=== PATIENT | male | born 1935 | race Caucasian/White ===

== ENCOUNTER 2024-11-07 18:15 | Inpatient (IN) | payer MEDICARE, MEDICAID, SELFPAY ==
[2024-11-07] VITALS (32 sets, daily range): BP systolic 110–148; BP diastolic 55–110; PULSE 84–208; RESP 16–49; TEMP 37.6–39.3; O2SAT 91–98; BMI 26.2
[2024-11-07 19:34] LABS: Add Manual Diff / Slide Review NO; Hematocrit 37.4 % (41-53); Hemoglobin 12.5 g/dL (13.5-17.5); Lymphocytes Absolute Auto 700 /uL (1100-4500); Mean Corpuscular HGB Conc 33.5 % (30-36); Mean Corpuscular Hemoglobin 27.4 PG (26-34); Mean Corpuscular Volume 81.8 fL (80-100)
[2024-11-07 19:39] LABS: Alanine Aminotransferase 15 IU/L (<50); Albumin 4.1 g/dL (3.5-5.0); Albumin Globulin Ratio 1.1 (1.0-2.8); Alkaline Phosphatase 94 U/L (38-126); Blood Urea Nitrogen 26 mg/dL (9-20); Calcium 10.0 mg/dL (8.4-10.2); Carbon Dioxide 17 mmol/L (22-32); Chloride 99 mmol/L (98-107); Estimated Glomerular Filt Rate 59 mL/min (>60); Globulin 3.6 g/dL (1.7-4.1); Glucose 120 mg/dL (70-99); Lipase 29 U/L (23-300); Potassium 4.2 mmol/L (3.4-5.1); Sodium 125 mmol/L (137-145); Total Protein 7.7 g/dL (6.3-8.2)
[2024-11-07 19:42] LABS: HEMOLYSIS 61 (0-50)
[2024-11-07 19:48] LABS: Anisocytosis 2+
[2024-11-07 20:15] LABS: Influenza A - CEPHEID Flu A NEGATIVE (NEGATIVE); Influenza B - CEPHEID Flu B NEGATIVE (NEGATIVE)
[2024-11-07 20:17] LABS: COVID-19 CEPHEID 4-PLEX PCR Negative (Negative)
--- NOTE | 2024-11-07 20:31 | ED_ITS ---
HPI - Nausea/Vomiting/Diarrhea General Chief complaint: Nausea/Vomiting/Diarrhea Stated complaint: flu like symptoms, N/V/D Time Seen by Provider: 11/07/24 20:31 Source: family Mode of arrival: EMS History of Present Illness HPI Narrative: 86-year-old male patient who identifies as female and has an underlying history of atrial fibrillation, hypertension, CHF, COPD, BPH and dyslipidemia. Who complains of weakness, imbalance and lightheadedness with 1 or 2 falls in the last 3 or 4 days. Has not been eating or drinking well. Generally feels weak all over. No fever, chills or trauma. No chest pain. Related Data Allergies Allergy/AdvReac Type Severity Reaction Status Date / Time No Known Drug Allergies Allergy Verified 11/07/24 18:17 Patient History Smoking Status: Never smoker Exam Narrative Exam Narrative: General: Alert and conversant. No distress. Appears well nourished mildly dehydrated. Craniofacial: No evidence of trauma. Nontender and no swelling. Eyes: PERRLA EOMI conjunctiva clear HEENT: Oropharynx clear with no swelling, exudate or asymmetry of the pharynx. Nares clear. No sinus tenderness Neck: No tenderness or adenopathy. No meningismus. No JVD Lungs: Clear to auscultation with good air movement. No wheezing, rales or rhonchi. No respiratory distress Cardiac: Irregularly irregular but normal rate and with no appreciable murmur or gallop Abdomen: Soft, nontender with no distention or masses. Normal bowel sounds. No rebound or guarding Musculoskeletal: Exam of the extremities, axial spine and ribcage reveals no deformity, bony tenderness or swelling. Range of motion intact Neuro: Alert and oriented. Cranial nerves, motor, sensory and cerebellar all grossly intact. No focal deficit Skin: Warm and normal color. No rashes Psychological: Normal affect and interaction. No evidence of delusion or psychosis. Normal mood. Initial Vital Signs Initial Vital Signs: Vital Signs Temperature 99.6 F 11/07/24 18:16 Pulse Rate 98 H 11/07/24 18:16 Respiratory Rate 16 11/07/24 18:16 Blood Pressure 140/81 11/07/24 18:16 Pulse Oximetry 94 11/07/24 18:16 Oxygen Delivery Method Room Air 11/07/24 18:16 Course Course Course Narrative: 21:00 Patient is in rapid irregular rhythm which appears to be possible atrial fibrillation. I discussed the EKG with Dr. Amaro, who agrees that this is rapid atrial fibrillation. Patient was ordered 0.25 mg diltiazem IV. Lab work reveals WBCs 13.7, CBC otherwise unremarkable. CMP reveals sodium 125 with CO2 of 17. 22:00 Patient is rate controlled with diltiazem and he is now atrial fibrillation at a rate of 85. No chest pain. Receiving ceftriaxone for UTI. 23:15 Patient's 2nd troponin comes back at 0.053, slightly down from the 1 at 7:00 p.m. of 0.064. Patient has had no chest pain before or during ER visit. I discussed his care again with Dr. Amaro, Cardiology who feels he is appropriate for here from a cardiology standpoint. Patient had rapid atrial fibrillation responding to an IV bolus of diltiazem and rate is now at 85. Otherwise the patient has UTI with borderline sepsis based on elevated white count but no lactate elevation. Tachycardia. Malaise and hyponatremia. 23:45 I discussed the patient's care with Dr. Nolasco who agrees to admit him for atrial fibrillation with rapid ventricular response, UTI with borderline sepsis and an elevated white count and also hyponatremia. Decision to Admit Date: 11/07/24 Decision to Admit time: 23:49 Orders Ordered: ED Orders 11/07/24 19:06 Complete Blood Count AUTO DIFF Stat Comprehensive Metabolic Panel Stat Covid-19 + FLU A/B + RSV - PCR Stat Lipase Stat Magnesium Stat 11/07/24 21:22 BNP [NT-proBNP (BNP-Adult 18+)] Stat Trop I [Troponin I] Stat 11/07/24 21:40 CXR [XR chest 1V] Stat EKG-12 Lead Stat 11/07/24 21:50 Urine Culture Stat Urine Microscopic Stat 11/07/24 22:04 CRP [C-Reactive Protein Quant] Stat Lactate (Lactic Acid) Stat Procalcitonin Stat Trop I [Troponin I] Stat 11/07/24 23:00 Blood Culture Stat Acetaminophen (Acetaminophen 325 Mg Tablet) 650 mg PO Q6H PRN PRN Reason: Fever/Mild Pain (1-3) Hydrocodone Bitart/Acetaminophen (Hydrocodone/Acet 5/325 Tablet) 1 tab PO Q4H PRN PRN Reason: Pain, Moderate (4-6) Calcium Carbonate (Calcium Carbonate 500 Mg Tab) 1,000 mg PO Q4HR PRN PRN Reason: Dyspepsia Magnesium Hydroxide (Magnesium Hydroxide 30 Ml Udc) 30 ml PO DAILY PRN PRN Reason: Constipation Naloxone HCl (Naloxone 0.4 Mg/Ml Vial) 0.2 mg IV Q2MIN PRN PRN Reason: Opiate Reversal Ondansetron HCl (Ondansetron 4 Mg/2 Ml Inj) 4 mg IV NOW PRN PRN Reason: Nausea And Vomiting Last Admin: 11/07/24 22:35 Dose: 4 mg Ondansetron HCl (Ondansetron 4 Mg Odt) 4 mg PO NOW PRN PRN Reason: Nausea And Vomiting Ondansetron HCl (Ondansetron 4 Mg/2 Ml Inj) 4 mg IV Q8HR PRN PRN Reason: Nausea And Vomiting Ondansetron HCl (Ondansetron 4 Mg Odt) 4 mg PO Q8HR PRN PRN Reason: Nausea And Vomiting Pantoprazole Sodium (Pantoprazole Dr 20 Mg Tablet) 20 mg PO 0700,2100 INA Discontinued Medications Acetaminophen (Acetaminophen 325 Mg Tablet) 975 mg PO NOW ONE Stop: 11/07/24 21:25 Last Admin: 11/07/24 21:42 Dose: 975 mg Diltiazem HCl (Diltiazem 25 Mg/5 Ml Sdv) 20 mg IV NOW ONE Stop: 11/07/24 22:26 Last Admin: 11/07/24 22:46 Dose: 20 mg Sodium Chloride (Normal Saline 0.9%) 1,000 mls @ 1,000 mls/hr IV BOLUS ONE Stop: 11/07/24 22:16 Last Infusion: 11/07/24 23:11 Dose: Infused Ceftriaxone Sodium 1,000 mg/ (Sodium Chloride) 100 mls @ 200 mls/hr IV NOW ONE Stop: 11/07/24 22:46 Last Infusion: 11/07/24 23:49 Dose: Infused Ketorolac Tromethamine (Ketorolac 30 Mg/Ml Vial) 15 mg IV NOW ONE Stop: 11/07/24 22:27 Last Admin: 11/07/24 22:35 Dose: 15 mg Vital Signs Vital signs: Vital Signs - 8 hr 11/07/24 18:16 11/07/24 19:19 11/07/24 19:30 Temperature 99.6 F Pulse Rate 98 H 88 85 Respiratory Rate 16 18 Blood Pressure 140/81 Pulse Oximetry 94 94 95 Oxygen Delivery Method Room Air Oxygen Flow Rate 11/07/24 19:30 11/07/24 20:00 11/07/24 20:00 Temperature Pulse Rate 88 Respiratory Rate 32 H Blood Pressure 130/68 147/80 H Pulse Oximetry 96 Oxygen Delivery Method Oxygen Flow Rate 11/07/24 20:30 11/07/24 20:30 11/07/24 21:00 Temperature Pulse Rate 84 89 Respiratory Rate 17 32 H Blood Pressure 148/73 H Pulse Oximetry 98 96 Oxygen Delivery Method Nasal Cannula Room Air Oxygen Flow Rate 2 11/07/24 21:00 11/07/24 21:30 11/07/24 21:42 Temperature 100.4 F H Pulse Rate 208 H Respiratory Rate 49 H Blood Pressure 128/95 H Pulse Oximetry 91 Oxygen Delivery Method Oxygen Flow Rate 11/07/24 22:00 11/07/24 22:01 11/07/24 22:01 Temperature Pulse Rate 170 H 164 H Respiratory Rate 46 H 34 H Blood Pressure 137/86 Pulse Oximetry 94 96 Oxygen Delivery Method Oxygen Flow Rate 11/07/24 22:20 11/07/24 22:20 11/07/24 22:21 Temperature 102.8 F H Pulse Rate 152 H Respiratory Rate 29 H Blood Pressure 146/94 H Pulse Oximetry 96 Oxygen Delivery Method Oxygen Flow Rate 11/07/24 22:30 11/07/24 22:30 11/07/24 22:35 Temperature 102.8 F H Pulse Rate 143 H Respiratory Rate 30 H Blood Pressure 110/55 L Pulse Oximetry 93 Oxygen Delivery Method Oxygen Flow Rate 11/07/24 22:36 11/07/24 22:36 11/07/24 22:41 Temperature Pulse Rate 153 H 131 H Respiratory Rate 30 H 27 H Blood Pressure 148/64 H Pulse Oximetry 98 98 Oxygen Delivery Method Oxygen Flow Rate 11/07/24 22:41 11/07/24 22:45 11/07/24 22:45 Temperature Pulse Rate 141 H Respiratory Rate 32 H Blood Pressure 118/65 126/88 Pulse Oximetry 98 Oxygen Delivery Method Oxygen Flow Rate 11/07/24 22:46 11/07/24 22:51 11/07/24 22:51 Temperature Pulse Rate 152 H 146 H Respiratory Rate 29 H Blood Pressure 126/88 139/110 H Pulse Oximetry 96 Oxygen Delivery Method Oxygen Flow Rate 11/07/24 22:56 11/07/24 22:56 11/07/24 23:00 Temperature Pulse Rate 95 H Respiratory Rate 21 Blood Pressure 137/62 124/58 L Pulse Oximetry 96 Oxygen Delivery Method Oxygen Flow Rate 11/07/24 23:00 11/07/24 23:05 11/07/24 23:05 Temperature Pulse Rate 89 87 Respiratory Rate 16 24 Blood Pressure 124/61 Pulse Oximetry 95 92 Oxygen Delivery Method Oxygen Flow Rate 11/07/24 23:10 11/07/24 23:10 11/07/24 23:10 Temperature 102.4 F H Pulse Rate 85 Respiratory Rate 33 H Blood Pressure 134/63 Pulse Oximetry 95 Oxygen Delivery Method Oxygen Flow Rate 11/07/24 23:15 11/07/24 23:15 11/07/24 23:20 Temperature Pulse Rate 86 Respiratory Rate 24 Blood Pressure 128/65 134/63 Pulse Oximetry 94 Oxygen Delivery Method Oxygen Flow Rate 11/07/24 23:20 11/07/24 23:25 11/07/24 23:25 Temperature Pulse Rate 87 84 Respiratory Rate 27 H 25 H Blood Pressure 134/60 Pulse Oximetry 95 95 Oxygen Delivery Method Oxygen Flow Rate 11/07/24 23:30 11/07/24 23:30 11/07/24 23:35 Temperature Pulse Rate 84 87 Respiratory Rate 25 H 25 H Blood Pressure 128/61 Pulse Oximetry 97 97 Oxygen Delivery Method Oxygen Flow Rate 11/07/24 23:35 11/07/24 23:40 11/07/24 23:40 Temperature Pulse Rate 87 Respiratory Rate 24 Blood Pressure 132/64 129/68 Pulse Oximetry 97 Oxygen Delivery Method Oxygen Flow Rate 11/07/24 23:45 11/07/24 23:45 Temperature Pulse Rate 88 Respiratory Rate 24 Blood Pressure 134/63 Pulse Oximetry 97 Oxygen Delivery Method Oxygen Flow Rate MDM - Nausea/Vomiting/Diarrhea Lab Data Attestation: I reviewed the patient's lab results. Lab results narrative: Labs ordered to assess patient's fatigue. WBCs 13.7. CBC otherwise unremarkable. Sodium 125 and creatinine 1.21 but otherwise unremarkable. Urinalysis consistent with UTI. 11/07/24 19:06 11/07/24 19:06 Labs: Lab Results 11/07/24 11/07/24 11/07/24 Range/Units 19:06 21:22 21:50 WBC 13.7 H (4.5-11.0) X10^3/uL RBC 4.57 (4.5-5.9) X10^6/uL Hgb 12.5 L (13.5-17.5) g/dL Hct 37.4 L (41-53) % MCV 81.8 (80-100) fL MCH 27.4 (26-34) PG MCHC 33.5 (30-36) % RDW 21.4 H (11.6-14.8) % Plt Count TNP Neut % (Auto) 85.4 H (50-75) % Lymph % (Auto) 5.1 L (25-40) % [place] % (Auto) 9.3 (3-14) % Eos % (Auto) 0.0 L (2-4) % Baso % (Auto) 0.2 (0-2) % Neut # (Auto) 86808 H (9283-8764) /uL Lymph # (Auto) 700 L (4492-3092) /uL [place] # (Auto) 1300 H (0-900) /uL Eos # (Auto) 0 (0-450) /uL Baso # (Auto) 0 (0-100) /uL Platelet Estimate Adequate on smear RBC Morphology See below Anisocytosis 2+ H Sodium 125 L (137-145) mmol/L Potassium 4.2 (3.4-5.1) mmol/L Chloride 99 (98-107) mmol/L Carbon Dioxide 17 L (22-32) mmol/L BUN 26 H (9-20) mg/dL Creatinine 1.21 (0.66-1.25) mg/dL Estimated GFR 59 L (>60) mL/min BUN/Creatinine Ratio 21.5 (6-22) Glucose 120 H (70-99) mg/dL Lactate (0.7-2.1) mmol/L Calcium 10.0 (8.4-10.2) mg/dL Magnesium 1.7 (1.6-2.3) mg/dL Total Bilirubin 2.2 H (0.2-1.3) mg/dL AST 43 (17-59) IU/L ALT 15 (<50) IU/L Alkaline Phosphatase 94 (38-126) U/L Troponin I 0.062 H (0.01-0.034) ng/mL C-Reactive Protein (<1.0) mg/dL NT-Pro-B Natriuret Pep 5480 H (<450) pg/mL Total Protein 7.7 (6.3-8.2) g/dL Albumin 4.1 (3.5-5.0) g/dL Globulin 3.6 (1.7-4.1) g/dL Albumin/Globulin Ratio 1.1 (1.0-2.8) Lipase 29 (23-300) U/L Procalcitonin (<0.5) ng/mL Urine RBC 1-5/hpf (0-5/HPF) Urine WBC 30-100/hpf H (0-5/HPF) Ur Squamous Epith Cells 0-1 /hpf (0-5/HPF) Urine Bacteria Many (>30) H (None) Ur Culture Indicated? Specimen cultured Vol Urine Centrifuged 10ml (spun) SARS-CoV-2 (PCR) Negative (Negative) Influenza A (RT-PCR) Flu a negative (NEGATIVE) Influenza B (RT-PCR) Flu b negative (NEGATIVE) RSV (PCR) Negative (Negative) 11/07/24 11/07/24 Range/Units 22:04 23:30 WBC (4.5-11.0) X10^3/uL RBC (4.5-5.9) X10^6/uL Hgb (13.5-17.5) g/dL Hct (41-53) % MCV (80-100) fL MCH (26-34) PG MCHC (30-36) % RDW (11.6-14.8) % Plt Count Neut % (Auto) (50-75) % Lymph % (Auto) (25-40) % [place] % (Auto) (3-14) % Eos % (Auto) (2-4) % Baso % (Auto) (0-2) % Neut # (Auto) (6993-1536) /uL Lymph # (Auto) (5444-2480) /uL [place] # (Auto) (0-900) /uL Eos # (Auto) (0-450) /uL Baso # (Auto) (0-100) /uL Platelet Estimate RBC Morphology Anisocytosis Sodium (137-145) mmol/L Potassium (3.4-5.1) mmol/L Chloride (98-107) mmol/L Carbon Dioxide (22-32) mmol/L BUN (9-20) mg/dL Creatinine (0.66-1.25) mg/dL Estimated GFR (>60) mL/min BUN/Creatinine Ratio (6-22) Glucose (70-99) mg/dL Lactate 2.1 1.1 (0.7-2.1) mmol/L Calcium (8.4-10.2) mg/dL Magnesium (1.6-2.3) mg/dL Total Bilirubin (0.2-1.3) mg/dL AST (17-59) IU/L ALT (<50) IU/L Alkaline Phosphatase (38-126) U/L Troponin I 0.057 H (0.01-0.034) ng/mL C-Reactive Protein 7.1 H (<1.0) mg/dL NT-Pro-B Natriuret Pep (<450) pg/mL Total Protein (6.3-8.2) g/dL Albumin (3.5-5.0) g/dL Globulin (1.7-4.1) g/dL Albumin/Globulin Ratio (1.0-2.8) Lipase (23-300) U/L Procalcitonin 0.642 H (<0.5) ng/mL Urine RBC (0-5/HPF) Urine WBC (0-5/HPF) Ur Squamous Epith Cells (0-5/HPF) Urine Bacteria (None) Ur Culture Indicated? Vol Urine Centrifuged SARS-CoV-2 (PCR) (Negative) Influenza A (RT-PCR) (NEGATIVE) Influenza B (RT-PCR) (NEGATIVE) RSV (PCR) (Negative) Urine Dip Bedside Urine Glucose Negative Bedside Urine Bilirubin - Negative Bedside Urine Ketone - Negative Urine Specific [place] 1.015 Bedside Urine Occult Blood ++ Bedside Urine pH 6.0 Bedside Urine Protein ++ 100 Bedside Urine Urobilinogen - Negative Bedside Urine Nitrite - Negative Bedside Urine Leukocytes +++ 500 Esterase Imaging Data Chest x-ray: Attestation: I personally reviewed and interpreted this imaging study as follows: (Chest x-ray:) My Impression: No acute disease. ECG Data Attestation: I personally reviewed and interpreted this ECG as follows: (Rapid rhythm which is irregular in undetermined but possibly atrial fibrillation. Incomplete RBBB. LAFB. LVH.) [facility] Narrative Medical decision making narrative: Patient presents with fatigue and generalized weakness with no fever or cough. Patient went into rapid atrial fibrillation while here in the ER which was controlled with diltiazem. Cardiac enzymes are slightly up but not trending upward and there is no chest pain or other symptoms indicating cardiac ischemia. Consultation obtained from Cardiology. Patient appropriate for management of here and discussed with the hospitalist. Patient has a urinary tract infection and elevated white count in his started on IV ceftriaxone for that. Also hyponatremia due to probable hypovolemia and is receiving normal saline hydration judiciously. Patient will be admitted on telemetry with management of rapid atrial fibrillation and the other problems mentioned in this note. Currently stable and improved. Discharge Plan Departure Patient Disposition: Admitted As Inpatient Clinical Impression: Atrial fibrillation with rapid ventricular response, Acute hyponatremia, Urinary tract infection, General weakness, Leukocytosis Admit Date/Time: 11/07/24 23:47 Admit Provider: Chuck Nolasco
[2024-11-07] MEDS: SODIUM CHLORIDE 0.9% 1,000 ML 1000 ML IV (21:24)
[2024-11-07 21:32] LABS: Magnesium 1.7 mg/dL (1.6-2.3)
--- NOTE | 2024-11-07 21:38 | PC.NURSE ---
pt febrile tylenol given obvious shaking noted pt denies
--- NOTE | 2024-11-07 21:40 | EKG_ITS ---
[place] [id number] [address] [place] [id number] Test Date: 2024-11-07 Pat Name: Lonnie Rader Department: [facility] Room: Gender: Male [employer]: MAYCOL : 1938-02-12 Requested By: Order Number: [id number] Reading MD: Brian Tellez Measurements Intervals [place] Rate: 177 P: 174 NM: QRS: -48 QRSD: 94 T: 112 QT: 284 QTc: 487 Interpretive Statements ATRIAL FIBRILLATION WITH RAPID VENTRICULAR RESPONSE Pulmonary disease pattern Left anterior fascicular block Left ventricular hypertrophy with repolarization abnormality ( Nathan product ) Cannot rule out Septal infarct , age undetermined Electronically Signed On 11-08-2024 7:20:42 PDT by Brian Tellez
--- NOTE | 2024-11-07 21:40 | DI.RAD.S_ITS ---
PROCEDURE: XR CHEST 1V INDICATIONS: Shortness of breath. Weakness TECHNIQUE: One view of the chest was acquired. COMPARISON: None. FINDINGS: Surgical changes and devices: None. Lungs and pleura: Lungs are clear. No pleural effusions or pneumothorax. Mediastinum: Mediastinal contours appear normal. Heart size is normal. Bones and chest wall: No suspicious bony lesions. Overlying soft tissues appear unremarkable. IMPRESSION: No acute cardiopulmonary abnormality is seen. Approved by: Magdalena Bangura M.D.,Ph.D. on 11/07/2024 at 22:49
[2024-11-07] MEDS: ACETAMINOPHEN 325 MG TABLET 975 MG PO (21:42)
[2024-11-07 22:13] LABS: Culture Indicated Urine Specimen Cultured
[2024-11-07 22:18] LABS: NT-proBNP (BNP-Adult 18+) 5480 pg/mL (<450); Troponin I 0.062 ng/mL (0.01-0.034)
[2024-11-07 22:26] LABS: Lactate (Lactic Acid) 2.1 mmol/L (0.7-2.1)
[2024-11-07] MEDS: KETOROLAC 30 MG/ML VIAL 15 MG IV (22:35)
[2024-11-07] MEDS: ONDANSETRON 4 MG/2 ML INJ IV (22:35)
[2024-11-07 22:38] LABS: Troponin I 0.057 ng/mL (0.01-0.034)
[2024-11-07 22:43] LABS: Procalcitonin 0.642 ng/mL (<0.5)
[2024-11-07 23:46] LABS: Reflexed Lactate in 2 Hours Y
[2024-11-08] VITALS (12 sets, daily range): BP systolic 116–146; BP diastolic 64–83; PULSE 75–90; RESP 17–22; TEMP 35.9–37.5; O2SAT 92–98; BMI 26.2
[2024-11-08] LABS: Lactate 2HR (Lactic Acid Rflx) 1.1 mmol/L (0.7-2.1)
--- NOTE | 2024-11-08 00:44 | P.HP_ITS ---
History of Present Illness History of Present Illness Date Patient Seen: 11/08/24 Time Patient Seen: 00:44 Chief complaint: flu like symptoms, N/V/D Narrative: The pt is a 86 yo wo presents to the Er with c/o fatigue, weakness, over the past 4 days. He denies any CP or palpatations in the ER. His HR was reported to me as being 150 and he was given one dose of 5 mg of Diliazem which reduced the HR to 80-90. The pt was asleep during my exam and visit, nursing reports that he was without compliants, [facility] Social History Smoking Status: Never smoker Meds Home Medications and Allergies Allergies Allergy/AdvReac Type Severity Reaction Status Date / Time No Known Drug Allergies Allergy Verified 11/07/24 18:17 Exam Vital Signs (past 8 hours): - 11/07/24 18:16 11/07/24 19:19 11/07/24 19:30 Temperature 99.6 F Pulse Rate 98 H 88 85 Respiratory Rate 16 18 Blood Pressure 140/81 Pulse Oximetry 94 94 95 Oxygen Delivery Method Room Air Oxygen Flow Rate 11/07/24 19:30 11/07/24 20:00 11/07/24 20:00 Temperature Pulse Rate 88 Respiratory Rate 32 H Blood Pressure 130/68 147/80 H Pulse Oximetry 96 Oxygen Delivery Method Oxygen Flow Rate 11/07/24 20:30 11/07/24 20:30 11/07/24 21:00 Temperature Pulse Rate 84 89 Respiratory Rate 17 32 H Blood Pressure 148/73 H Pulse Oximetry 98 96 Oxygen Delivery Method Nasal Cannula Room Air Oxygen Flow Rate 2 11/07/24 21:00 11/07/24 21:30 11/07/24 21:42 Temperature 100.4 F H Pulse Rate 208 H Respiratory Rate 49 H Blood Pressure 128/95 H Pulse Oximetry 91 Oxygen Delivery Method Oxygen Flow Rate 11/07/24 22:00 11/07/24 22:01 11/07/24 22:01 Temperature Pulse Rate 170 H 164 H Respiratory Rate 46 H 34 H Blood Pressure 137/86 Pulse Oximetry 94 96 Oxygen Delivery Method Oxygen Flow Rate 11/07/24 22:20 11/07/24 22:20 11/07/24 22:21 Temperature 102.8 F H Pulse Rate 152 H Respiratory Rate 29 H Blood Pressure 146/94 H Pulse Oximetry 96 Oxygen Delivery Method Oxygen Flow Rate 11/07/24 22:30 11/07/24 22:30 11/07/24 22:35 Temperature 102.8 F H Pulse Rate 143 H Respiratory Rate 30 H Blood Pressure 110/55 L Pulse Oximetry 93 Oxygen Delivery Method Oxygen Flow Rate 11/07/24 22:36 11/07/24 22:36 11/07/24 22:41 Temperature Pulse Rate 153 H 131 H Respiratory Rate 30 H 27 H Blood Pressure 148/64 H Pulse Oximetry 98 98 Oxygen Delivery Method Oxygen Flow Rate 11/07/24 22:41 11/07/24 22:45 11/07/24 22:45 Temperature Pulse Rate 141 H Respiratory Rate 32 H Blood Pressure 118/65 126/88 Pulse Oximetry 98 Oxygen Delivery Method Oxygen Flow Rate 11/07/24 22:46 11/07/24 22:51 11/07/24 22:51 Temperature Pulse Rate 152 H 146 H Respiratory Rate 29 H Blood Pressure 126/88 139/110 H Pulse Oximetry 96 Oxygen Delivery Method Oxygen Flow Rate 11/07/24 22:56 11/07/24 22:56 11/07/24 23:00 Temperature Pulse Rate 95 H Respiratory Rate 21 Blood Pressure 137/62 124/58 L Pulse Oximetry 96 Oxygen Delivery Method Oxygen Flow Rate 11/07/24 23:00 11/07/24 23:05 11/07/24 23:05 Temperature Pulse Rate 89 87 Respiratory Rate 16 24 Blood Pressure 124/61 Pulse Oximetry 95 92 Oxygen Delivery Method Oxygen Flow Rate 11/07/24 23:10 11/07/24 23:10 11/07/24 23:10 Temperature 102.4 F H Pulse Rate 85 Respiratory Rate 33 H Blood Pressure 134/63 Pulse Oximetry 95 Oxygen Delivery Method Oxygen Flow Rate 11/07/24 23:15 11/07/24 23:15 11/07/24 23:20 Temperature Pulse Rate 86 Respiratory Rate 24 Blood Pressure 128/65 134/63 Pulse Oximetry 94 Oxygen Delivery Method Oxygen Flow Rate 11/07/24 23:20 11/07/24 23:25 11/07/24 23:25 Temperature Pulse Rate 87 84 Respiratory Rate 27 H 25 H Blood Pressure 134/60 Pulse Oximetry 95 95 Oxygen Delivery Method Oxygen Flow Rate 11/07/24 23:30 11/07/24 23:30 11/07/24 23:35 Temperature Pulse Rate 84 87 Respiratory Rate 25 H 25 H Blood Pressure 128/61 Pulse Oximetry 97 97 Oxygen Delivery Method Oxygen Flow Rate 11/07/24 23:35 11/07/24 23:40 11/07/24 23:40 Temperature Pulse Rate 87 Respiratory Rate 24 Blood Pressure 132/64 129/68 Pulse Oximetry 97 Oxygen Delivery Method Oxygen Flow Rate 11/07/24 23:45 11/07/24 23:45 11/07/24 23:50 Temperature Pulse Rate 88 86 Respiratory Rate 24 23 Blood Pressure 134/63 Pulse Oximetry 97 97 Oxygen Delivery Method Oxygen Flow Rate 11/07/24 23:50 11/07/24 23:55 11/07/24 23:55 Temperature Pulse Rate 85 Respiratory Rate 22 Blood Pressure 131/61 126/62 Pulse Oximetry 97 Oxygen Delivery Method Oxygen Flow Rate 11/08/24 00:00 11/08/24 00:00 Temperature Pulse Rate 84 Respiratory Rate 22 Blood Pressure 138/64 Pulse Oximetry 97 Oxygen Delivery Method Nasal Cannula Oxygen Flow Rate 2 Oxygen Delivery Method Nasal Cannula Oxygen Flow Rate 2 Const General: healthy appearing and comfortable Resp Auscultation: clear to auscultation bilaterally Cardio Rate: tachycardic Rhythm: abnormal rhythm GI Inspection: normal to inspection Auscultation: normal bowel sounds Objective Labs 11/07/24 19:06 11/07/24 19:06 Labs: Laboratory Results - last 24 hr 11/07/24 11/07/24 11/07/24 19:06 21:22 21:50 WBC 13.7 H RBC 4.57 Hgb 12.5 L Hct 37.4 L MCV 81.8 MCH 27.4 MCHC 33.5 RDW 21.4 H Plt Count TNP Neut % (Auto) 85.4 H Lymph % (Auto) 5.1 L [place] % (Auto) 9.3 Eos % (Auto) 0.0 L Baso % (Auto) 0.2 Neut # (Auto) 46077 H Lymph # (Auto) 700 L [place] # (Auto) 1300 H Eos # (Auto) 0 Baso # (Auto) 0 Platelet Estimate Adequate on smear RBC Morphology See below Anisocytosis 2+ H Sodium 125 L Potassium 4.2 Chloride 99 Carbon Dioxide 17 L BUN 26 H Creatinine 1.21 Estimated GFR 59 L BUN/Creatinine Ratio 21.5 Glucose 120 H Lactate Calcium 10.0 Magnesium 1.7 Total Bilirubin 2.2 H AST 43 ALT 15 Alkaline Phosphatase 94 Troponin I 0.062 H C-Reactive Protein NT-Pro-B Natriuret Pep 5480 H Total Protein 7.7 Albumin 4.1 Globulin 3.6 Albumin/Globulin Ratio 1.1 Lipase 29 Procalcitonin Urine RBC 1-5/hpf Urine WBC 30-100/hpf H Ur Squamous Epith Cells 0-1 /hpf Urine Bacteria Many (>30) H Ur Culture Indicated? Specimen cultured Vol Urine Centrifuged 10ml (spun) SARS-CoV-2 (PCR) Negative Influenza A (RT-PCR) Flu a negative Influenza B (RT-PCR) Flu b negative RSV (PCR) Negative 11/07/24 11/07/24 22:04 23:30 WBC RBC Hgb Hct MCV MCH MCHC RDW Plt Count Neut % (Auto) Lymph % (Auto) [place] % (Auto) Eos % (Auto) Baso % (Auto) Neut # (Auto) Lymph # (Auto) [place] # (Auto) Eos # (Auto) Baso # (Auto) Platelet Estimate RBC Morphology Anisocytosis Sodium Potassium Chloride Carbon Dioxide BUN Creatinine Estimated GFR BUN/Creatinine Ratio Glucose Lactate 2.1 1.1 Calcium Magnesium Total Bilirubin AST ALT Alkaline Phosphatase Troponin I 0.057 H C-Reactive Protein 7.1 H NT-Pro-B Natriuret Pep Total Protein Albumin Globulin Albumin/Globulin Ratio Lipase Procalcitonin 0.642 H Urine RBC Urine WBC Ur Squamous Epith Cells Urine Bacteria Ur Culture Indicated? Vol Urine Centrifuged SARS-CoV-2 (PCR) Influenza A (RT-PCR) Influenza B (RT-PCR) RSV (PCR) Assessment & Plan Assessment & Plan narrative: 1. Atrial Fibrillation- it was reported that the pt was tachycardic but HR was 77 during my visit, will monitor on telemetry, I have ordered IV diltiazem as needed if HR gets >120, 2. elevated troponin- I have reviewed the labs showing a troponin mildly elevated at 0.057, we will repeat this Q6 X 2, pain meds available, as well as SL NTG, 3. Weakness- PT/OT consulted, uncertain what baseline is. Dr. Chuck Nolasco in [facility] seen and evaluated Lonnie Rader in [facility] using telemedicine audio/video with pt's consent and nursing assistance. Time-Based Coding :: [TOTAL MINUTES] spent with patient and on the chart (including review of chart, obtaining history, exam, reviewing outside data, placing orders, documenting exam and treatment plan, and counseling patient) on [DATE].
[2024-11-08] MEDS: ACETAMINOPHEN IV 1,000 MG/100 ML VIAL 400 MG IV (05:03)
[2024-11-08] MEDS: FUROSEMIDE 20 MG/2 ML VIAL IV ×3 (05:09→21:24)
[2024-11-08] MEDS: PANTOPRAZOLE DR 20 MG TABLET PO ×2 (06:15→21:24)
--- NOTE | 2024-11-08 06:54 | PM.HP.1 ---
History of Present Illness History of Present Illness Date Patient Seen: 11/08/24 Chief complaint: flu like symptoms, N/V/D Narrative: This is an 86 yo male to female (who goes by the name of Ashli) with transgender, Afib and previous UTI who presented with fatigue and weakness over the past 4 days. He denies any CP or palpatations. His HR was 150 and he was given one dose of 5 mg of Diliazem which reduced the HR to 80-90. He says that he has been experiencing the symptoms of a distended bladder and inability to urinate for several days or weeks. His UA shows 30-100 wbc's so he will be treated for a UTI. The urine culture and blood cultures are pending. He is very relieved to have received a Duffy catheter. He is alert and oriented x3. No apparent distress. Hearing loss present. Pupils are equally round and reactive to light and accommodation. Extraocular muscles are intact. Sclerae are pink and nonicteric. Throat looks normal. No lymph nodes are felt head, neck, supraclavicular area. There is no thyromegaly. JVD is less than 6 cm. No carotid bruits are heard. Heart is irregularly irregular without murmur. Lungs are clear to auscultation bilaterally. Abdomen is soft, bowel sounds positive, nontender, no organomegaly. Extremities have no ankle edema. A Duffy catheter is present. Skin has no rash or jaundice. Cranial nerves 2-12 test intact. Motor function is 3/5 bilaterally and symmetrically. There is no tremor. Reflexes are symmetric. 1. Atrial Fibrillation-rapid ventricular response apparently resolved with 5 mg of diltiazem. Initial EKG showed a rate of 177. 2. elevated troponin-troponin peaked at 0.072, dropping to 0.060. Echocardiogram will be done. Likely a troponin leak due to the tachycardia. 3. Weakness- PT/OT consulted, uncertain what baseline is. 4. UTI with Bladder Outlet Obstruction-continue Duffy catheter, begin trial of tamsulosin, continue ceftriaxone pending urine culture. DVT prevention with enoxaparin. His niece is his backup decision maker. [facility] Medical History Urinary tract infection Transgender female Social History household members: none Smoking Status: Never smoker Meds Home Medications and Allergies Allergies Allergy/AdvReac Type Severity Reaction Status Date / Time No Known Drug Allergies Allergy Verified 11/07/24 18:17 Review of Systems Review of Systems Narrative: Positive for inability to urinate, weakness and fatigue. Negative for fevers, chills, sweats, chest pain, nausea vomiting, abdominal pain, rash, headache, new allergies, coughing, bleeding. Exam Vital Signs (past 8 hours): - 11/07/24 22:56 11/07/24 22:56 11/07/24 23:00 Temperature Pulse Rate 95 H Respiratory Rate 21 Blood Pressure 137/62 124/58 L Pulse Oximetry 96 Oxygen Delivery Method Oxygen Flow Rate 11/07/24 23:00 11/07/24 23:05 11/07/24 23:05 Temperature Pulse Rate 89 87 Respiratory Rate 16 24 Blood Pressure 124/61 Pulse Oximetry 95 92 Oxygen Delivery Method Oxygen Flow Rate 11/07/24 23:10 11/07/24 23:10 11/07/24 23:10 Temperature 102.4 F H Pulse Rate 85 Respiratory Rate 33 H Blood Pressure 134/63 Pulse Oximetry 95 Oxygen Delivery Method Oxygen Flow Rate 11/07/24 23:15 11/07/24 23:15 11/07/24 23:20 Temperature Pulse Rate 86 Respiratory Rate 24 Blood Pressure 128/65 134/63 Pulse Oximetry 94 Oxygen Delivery Method Oxygen Flow Rate 11/07/24 23:20 11/07/24 23:25 11/07/24 23:25 Temperature Pulse Rate 87 84 Respiratory Rate 27 H 25 H Blood Pressure 134/60 Pulse Oximetry 95 95 Oxygen Delivery Method Oxygen Flow Rate 11/07/24 23:30 11/07/24 23:30 11/07/24 23:35 Temperature Pulse Rate 84 87 Respiratory Rate 25 H 25 H Blood Pressure 128/61 Pulse Oximetry 97 97 Oxygen Delivery Method Oxygen Flow Rate 11/07/24 23:35 11/07/24 23:40 11/07/24 23:40 Temperature Pulse Rate 87 Respiratory Rate 24 Blood Pressure 132/64 129/68 Pulse Oximetry 97 Oxygen Delivery Method Oxygen Flow Rate 11/07/24 23:45 11/07/24 23:45 11/07/24 23:50 Temperature Pulse Rate 88 86 Respiratory Rate 24 23 Blood Pressure 134/63 Pulse Oximetry 97 97 Oxygen Delivery Method Oxygen Flow Rate 11/07/24 23:50 11/07/24 23:55 11/07/24 23:55 Temperature Pulse Rate 85 Respiratory Rate 22 Blood Pressure 131/61 126/62 Pulse Oximetry 97 Oxygen Delivery Method Oxygen Flow Rate 11/08/24 00:00 11/08/24 00:00 11/08/24 00:08 Temperature Pulse Rate 84 Respiratory Rate 22 Blood Pressure 138/64 Pulse Oximetry 97 98 Oxygen Delivery Method Nasal Cannula Nasal Cannula Oxygen Flow Rate 2 2 11/08/24 00:30 11/08/24 00:30 11/08/24 01:00 Temperature Pulse Rate 85 81 Respiratory Rate 20 21 Blood Pressure 136/65 Pulse Oximetry 97 97 Oxygen Delivery Method Oxygen Flow Rate 11/08/24 01:00 11/08/24 01:30 11/08/24 04:07 Temperature 97.0 F L Pulse Rate 78 Respiratory Rate 17 Blood Pressure 128/76 129/71 Pulse Oximetry 96 98 Oxygen Delivery Method Nasal Cannula Oxygen Flow Rate 2 2 11/08/24 05:07 11/08/24 05:21 Temperature 99.5 F 99.5 F Pulse Rate 75 Respiratory Rate 22 Blood Pressure Pulse Oximetry 97 Oxygen Delivery Method Oxygen Flow Rate 2 Oxygen Delivery Method Nasal Cannula Oxygen Flow Rate 2 Objective Labs 11/07/24 19:06 11/07/24 19:06 Labs: Laboratory Results - last 24 hr 11/07/24 11/07/24 11/07/24 19:06 21:22 21:50 WBC 13.7 H RBC 4.57 Hgb 12.5 L Hct 37.4 L MCV 81.8 MCH 27.4 MCHC 33.5 RDW 21.4 H Plt Count TNP Neut % (Auto) 85.4 H Lymph % (Auto) 5.1 L [place] % (Auto) 9.3 Eos % (Auto) 0.0 L Baso % (Auto) 0.2 Neut # (Auto) 39092 H Lymph # (Auto) 700 L [place] # (Auto) 1300 H Eos # (Auto) 0 Baso # (Auto) 0 Platelet Estimate Adequate on smear RBC Morphology See below Anisocytosis 2+ H Sodium 125 L Potassium 4.2 Chloride 99 Carbon Dioxide 17 L BUN 26 H Creatinine 1.21 Estimated GFR 59 L BUN/Creatinine Ratio 21.5 Glucose 120 H Lactate Calcium 10.0 Magnesium 1.7 Total Bilirubin 2.2 H AST 43 ALT 15 Alkaline Phosphatase 94 Troponin I 0.062 H C-Reactive Protein NT-Pro-B Natriuret Pep 5480 H Total Protein 7.7 Albumin 4.1 Globulin 3.6 Albumin/Globulin Ratio 1.1 Lipase 29 Procalcitonin Urine RBC 1-5/hpf Urine WBC 30-100/hpf H Ur Squamous Epith Cells 0-1 /hpf Urine Bacteria Many (>30) H Ur Culture Indicated? Specimen cultured Vol Urine Centrifuged 10ml (spun) SARS-CoV-2 (PCR) Negative Influenza A (RT-PCR) Flu a negative Influenza B (RT-PCR) Flu b negative RSV (PCR) Negative 11/07/24 11/07/24 22:04 23:30 WBC RBC Hgb Hct MCV MCH MCHC RDW Plt Count Neut % (Auto) Lymph % (Auto) [place] % (Auto) Eos % (Auto) Baso % (Auto) Neut # (Auto) Lymph # (Auto) [place] # (Auto) Eos # (Auto) Baso # (Auto) Platelet Estimate RBC Morphology Anisocytosis Sodium Potassium Chloride Carbon Dioxide BUN Creatinine Estimated GFR BUN/Creatinine Ratio Glucose Lactate 2.1 1.1 Calcium Magnesium Total Bilirubin AST ALT Alkaline Phosphatase Troponin I 0.057 H C-Reactive Protein 7.1 H NT-Pro-B Natriuret Pep Total Protein Albumin Globulin Albumin/Globulin Ratio Lipase Procalcitonin 0.642 H Urine RBC Urine WBC Ur Squamous Epith Cells Urine Bacteria Ur Culture Indicated? Vol Urine Centrifuged SARS-CoV-2 (PCR) Influenza A (RT-PCR) Influenza B (RT-PCR) RSV (PCR) Assessment & Plan Time-Based Coding :: [TOTAL MINUTES] spent with patient and on the chart (including review of chart, obtaining history, exam, reviewing outside data, placing orders, documenting exam and treatment plan, and counseling patient) on [DATE].
[2024-11-08 07:36] LABS: Troponin I 0.072 ng/mL (0.01-0.034)
[2024-11-08 10:46] LABS: Troponin I 0.060 ng/mL (0.01-0.034)
--- NOTE | 2024-11-08 14:50 | PT.IIE ---
Current Diagnoses Unspecified atrial fibrillation (11/07/24) Physical Therapy Inpatient Evaluation/Re-Eval M1 PT/OT-IP Prior Functional Status Start: 11/08/24 16:39 Freq: NEEDED Status: Active Protocol: Document 11/08/24 14:50 AB (Rec: 11/08/24 17:07 AB [id number]) Medical Review Prior Functional Status Medical History Yes Reviewed Communication able to make needs known Mobility and Gait pt stated that she was modified independent with all mobilities and ambulation without AD indoors; uses a walker with 4 wheels/sit but without brakes when he walks outdoors for long distances but uses only a SPC outdoor for short distance ambulation (to go to her niece's house) pt had ~ 2 falls for the last 3 days Activities of Daily per OT note: Pt states just sponges off , independent Living and IADL's with ADL's, niece assist with groceries and transportation. Pt states at times will have meals from the niece or get vegetables once in awhile from their garden. Pt states mainly just eats from cans-beans and tomato soup. Prior Functional Pt live with her cat on niece's property. Level (Other details ) Social History Household Members none Living Arrangements Mobile home Number of Stairs To pt lives in a trailer on the same property as her niece Enter/Railing? 's house Has 5 steps with left grab bar to enter the trailer Home Environment Standard Height Toilet,Walk in Shower Home Equipment Straight Cane,Hand Held Shower Additional Social pt stated that she just sponge bathe and not take History Comment showers due to R shoulder pain and unable to reach and wash her hair M2 PT-IP Current Condition Start: 11/08/24 16:39 Freq: NEEDED Status: Active Protocol: Document 11/08/24 14:50 AB (Rec: 11/08/24 17:07 AB [id number]) Physical Therapy Current Condition Current Condition Evaluation Date 11/08/24 Treatment Diagnosis A-fib; hyponatremia; difficulty in walking Onset Date 11/07/24 M3 PT-IP Subjective Start: 11/08/24 16:39 Freq: NEEDED Status: Active Protocol: Document 11/08/24 14:50 AB (Rec: 11/08/24 17:07 AB [id number]) Subjective Physical Therapy Visit Type Type Initial Evaluation Visit Start Time 14:50 Visit Stop Time 15:30 Number of FOLDING MACHINE SETTER Visits 0 Physical Therapy Visit Comments Patient Comments agreeable to do PT Therapy Pain Assessment Pain When Pain Assessed At Rest Pain Present Pain Present Pain Reported Location Perineal Intensity 1 Scale Used discomfort from catheter Pain Management Distraction,Modification of Treatment Techniques M4 PT-IP Mobility and Gait Start: 11/08/24 16:39 Freq: NEEDED Status: Active Protocol: Document 11/08/24 14:50 AB (Rec: 11/08/24 17:07 AB [id number]) PT-Bed Mobility Assessment Supine to Sit Supine to Sit Standby Assistance Sit to Supine Sit to Supine Standby Assistance PT-Transfer Assessment Sit to and From Stand Sit to and from Contact Guard Assistance,1 Person Assistance,Use of Stand Upper Extremities Equipment Transfer Assistive None,Gait Belt,Front Wheeled Walker Device Orthotic/Prosthetic No Devices or Brace: Transfers Transfer Destination Bed,Chair Transfer Technique ambulated Transfer Ability Level of Assist Contact Guard Assistance,Minimal Assistance,1 Person Assistance,Use of Upper Extremities Comments Mobility Comments pt sitting on the chair and agreeable to do PT. obtained PLOF and home set up. pt has memory issues and unsure of info provided. pt also gets easily distracted needing cues for refocusing. BP sittin//65. O2 sat: 97% NC: varies 55-93 pt completed sit to stand CGA and ambulated without AD to EOB ~ 15 ft CGA to min A and cues. presents with unsteady antalgic gait. pt sat on EOB. pt completed sit <> supine SBA. sit to stand from EOB CGA and ambulated back to chair using FWW CGA and cues. positioned pt on the chair. Left pt with OT. Gait Assessment Gait Gait Assistance Contact Guard Assist,Minimum Assistance Required: Distance (Feet) 15 Able to Maintain Yes Weight Bearing Status During Gait Assistive Devices Assistive Device None,Gait Belt,Front Wheeled Walker Orthotic/Prosthetic No Devices or Brace: Gait Deviations General Gait Pattern Antalgic,Decreased Stride Length,Decreased Feet Clearance,Step-to Gait Factors Limiting Gait Function Factors Limiting Decreased Activity Tolerance,Decreased Strength, Gait Function Difficulty Following Directions,Limited Range of Motion ,Pain,Poor Balance,Poor Safety Awareness PT-Balance Assessment Sitting Balance and Reactions Static Sitting Normal Balance Ability Dynamic Sitting Good Balance Ability Standing Balance and Reactions Static Standing Fair Balance Ability Dynamic Standing Fair Balance Ability Device Used FWW M5 PT-IP Objective Assessments Start: 11/08/24 16:39 Freq: NEEDED Status: Active Protocol: Document 11/08/24 14:50 AB (Rec: 11/08/24 17:07 AB [id number]) Orientation Orientation/Cognition Level of Alertness Alert Orientation Name,Place,Situation Language Function Hard of Hearing Ability Memory Description Short Term Impaired,Conductor Yard Impaired Gross Range of Motion Lower Extremity ROM Assessment Within Functional Limits Strength Lower Extremity Strength Assessment Within Functional Limits Muscle Tone Muscle Tone WNL Yes M6 PT-IP Treatment Start: 11/08/24 16:39 Freq: NEEDED Status: Active Protocol: Document 11/08/24 14:50 AB (Rec: 11/08/24 17:07 AB [id number]) Physical Therapy Treatment Education Education Provided Safety M7 PT-IP Assessment and Plan Start: 11/08/24 16:39 Freq: NEEDED Status: Active Protocol: Document 11/08/24 14:50 AB (Rec: 11/08/24 17:07 AB [id number]) PT Summary Assessment and Plan Potential Rehabilitation Fair Potential Status of Condition Evolving at Evaluation Summary Impairments Pain,ROM,Strength,Balance,Coordination,Sensation, Cognition,Bed Mobility,Transfers,Gait,Activity Tolerance Assessment Summary pt requiring CGA to min A with ambulation without AD and CGA using fWW. pt has decrease safety awareness and is a fall risk. pt needs assistance at home but has nobody to assist her. pt will need to be more independent than current level and may require SNF rehab. will continue to assess progress. Goals Bed Mobility Goal Independent Transfer Goal Independent,Front Wheeled Walker Gait Goal Independent,Front Wheel Walker Gait Distance 100 Other Goals improve transfers and ambulation without AD or LRAD ~ 200 ft mod I up/down 5 steps SPC SBA Days to Meet Goals 10 Frequency of Treatment Frequency Of Once a Day Treatment Treatment Plan Physical Therapy Bed Mobility Training,Transfer Training,Gait Training, Treatment Plan Therapeutic Exercise,Balance Retraining,Discharge Planning,Hot or Cold Pack,Neuromuscular Re-ed, Coordination Retraining,Manual Therapy Precautions Other Precautions falls Recommendations To Nursing Amount of Assist 1 Person Assist Needed Discharge Recommendations PT Discharge SNF Rehab Recommendations Transportation Needs Private Vehicle,Wheelchair/Cabulance at Discharge - PT assist 1
--- NOTE | 2024-11-08 15:45 | CM.DANOTE ---
DCP Assessment note Pt is an 89yo MTF (USES GARCIA) here with afib/hyponatremia/weakness. PCP not yet established has an appt with Manuela MORSE with [facility]. JUDO TEACHER reviewed EMR. tropes slightly elevated. per provider, HANK unknown. okay with PT/OT orders. JUDO TEACHER met with pt and beab Zuniga in room. lives alone on nieces [place] in [place]. uses FWW/cane at baseline, has had a decline in health past 3 months or so. interested in RETIREMENT/AFH also interested in SNF first. has been needing more help in [facility] past 6 months. JUDO TEACHER gave niece Medicaid application for LTC. preference for [facility] if possible. PASRR needed. per OT rec SNF. PT pending. CC Charu sent initial ref information to Valarie at [facility] need to send PT/OT once completed. P: anticipate SNF at [facility] if can accept. will fax in LTC sandra once completed. will continue to follow closely for DCP Coordination ADRIÁN Gabriel Discharge Planning/Care Management CM Discharge Assessment Start: 11/08/24 01:30 Freq: Status: Active Protocol: Document 11/08/24 15:43 SL (Rec: 11/08/24 15:45 SL [id number]) Discharge Planning Assessment Assigned Discharge ADRIÁN Farley Brownell Operator Provider Manuela MORSE [facility] Insurance Medicare,[employer] DPOA/Assigned beba Zuniga Designee Name Contact Information [phone] Advance Directives? No History Provided By Patient,Family Member Prior Living Mobile home Arrangements Comment trailer on niece's property Household Members none Type of Relies on Others transporation used prior to admit Independent with ADL Yes 's Is patient alert and Yes oriented? Needs Assistance Home Chores / Shopping With Comment needing more assistance past 3 months DME Already Rented / FWW / Walker,Cane Owned Patient/Family Residential Facility Preference Discharge Plan Residential Facility Referrals Initiated Residential,Medicaid Application Additional Comment [facility] reviewing-acceptance pending SNF/HH Preference [facility] or whatever is closest to family Has Agency SNF been Yes contacted Whiteboard Updated Yes in Patient Room with name and ext. # of Tow Motor Driver Review Status In Process Please Provide Date 11/08/24 Initial DC Assessment Was Performed Next Review Type Continued Stay Review
--- NOTE | 2024-11-08 16:00 | OT.IP.EVAL ---
Current Diagnoses Unspecified atrial fibrillation (11/07/24) Occupational Therapy Inpatient Evaluation/Re-Eval M1 PT/OT-IP Prior Functional Status Start: 11/08/24 16:16 Freq: NEEDED Status: Active Protocol: Document 11/08/24 16:17 [facility] (Rec: 11/08/24 16:39 [facility] Desktop) Medical Review Prior Functional Status Communication I Mobility and Gait Pt states uses a SPC or FWW with 4 wheels to get to her niece's house. Pt states in the trailer does not use a device. Activities of Daily Pt states just sponges off , independent with ADL's, Living and IADL's niece assist with groceries and transportation. Pt states at times will have meals from the niece. Pt states mainly just eats from cans-beans and tomato soup. Prior Functional Pt lives in with her cat on niece's property. Level (Other details ) Social History Household Members none Living Arrangements Mobile home Number of Stairs To 5 steps with left grab bar, not able to hold the grab Enter/Railing? bar for all the steps. Home Environment Standard Height Toilet,Walk in Shower Home Equipment Straight Cane Additional Social fww with 4 wheels History Comment M2 OT-IP Current Condition Start: 11/08/24 16:16 Freq: Status: Active Protocol: Document 11/08/24 16:17 [facility] (Rec: 11/08/24 16:39 [facility] Desktop) Occupational Therapy Current Condition Current Condition Evaluation Date 11/08/24 Treatment Diagnosis A-fib, hyponatremia Diagnosis Onset Date 11/07/24 M3 OT- IP Subjective and Pain Start: 11/08/24 16:16 Freq: Status: Active Protocol: Document 11/08/24 16:17 [facility] (Rec: 11/08/24 16:39 [facility] Desktop) OT- Subjective Occupational Therapy Visit Type Type Initial Evaluation Visit Start Time 14:58 Visit Stop Time 16:00 Occupational Therapy Visit Comments Patient Comments Pt agreed to get up. Pt aware not thinking well. Patient/Caregiver To get better to be with her cat. Goals OT Pain Assessment Pain When Pain Assessed At Rest Pain Present Pain Present Denied Pain M4 OT- IP ADL's Start: 11/08/24 16:16 Freq: Status: Active Protocol: Document 11/08/24 16:17 [facility] (Rec: 11/08/24 16:39 [facility] Desktop) OT [id number] Comments OT Self-Feeding Not at meal time. Comments OT ADL-Grooming Comments OT Grooming Comments Not performed. OT ADL-Oral Care Comments Oral Care Comments Not performed. OT ADL-Dressing General Eval Lower Body Dressing Standby Assistance Ability Comments OT Dressing Comments Pt able to bobbi/doff socks while seated. OT ADL-Toileting General Evaluation Toileting Ability Total Assistance Comments OT Toileting Duffy in place Comments OT ADL-Bathing Comments OT Bathing Comments Pt states has been sponge bathing and not wanting to turn on the furnace to use the hot water. Pt insists that she does not want to waste money.Pt also states does not want to go into niece's house to shower as she has 5 kids. M5 OT- IP IADL's Start: 11/08/24 16:16 Freq: Status: Active Protocol: Document 11/08/24 16:17 [facility] (Rec: 11/08/24 16:39 [facility] Desktop) OT-Instrumental Activities of Daily Living Home Safety Awareness Home Safety Comments Pt is not thinking well at this time. Pt states has been forgetting to take her medications. Pt states does not know how to set up an alarm on the cell phone and only knows how to make calls. Medication Management Medication Pt will benefit from assist. Management Comments Money Management Money Management Pt states she pays the niece $1000 for rent, groceries Comments and transportaion. Meal Preparation Meal Preparation Pt will benefit from assist for meal and to be sure Comments they are balanced. Pt states mainly just eats from cans -beans and tomato soup. Driving Driving Comments Pt does not drive. M6 OT- IP Functional Cognition Start: 11/08/24 16:16 Freq: Status: Active Protocol: Document 11/08/24 16:17 [facility] (Rec: 11/08/24 16:39 [facility] Desktop) Cognitive Factors Limiting Selfcare Function Cognitive Ability Level of Alertness Confusional State Patient Orientation Name,Month,Year,Place Attention Span Capable of Focused Attention,Unable to Sustain Ability Attention Ability to Follow Able to Follow One Step Commands with Increased Time, Commands Able to Follow One Step Commands with Repetition Memory Description Short Term Impaired Problem Solving Needs Assist to Identify Solutions Ability Cognitive Tests SLUMS Pt scored 17/30 which implies dementia. 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 Pt has low sodium which may also be affecting her mentation. Pt will benefit to reassess SLUMS when doing better. Pt thought in was THurs, able to state 10 animals in one minute, able to recall 2/5 objects after time passes, not able to draw the hour hands correctly after time given, able to answer 1/4 questions right after paragraph read. Cognitive Comments Cognitive Assessment Pt very distracted, impulsive and tangential. Pt admits Comments to having difficulty with her STM for the past few years. OT- Vision and Hearing OT- Hearing Assessment OT- Hearing Hearing Impaired Assessment OT- Vision Assessment Visual Acuity Glasses For Reading Visual Attentiveness WFL Occular Pursuits WFL M7 OT- IP Mobility and Balance Start: 11/08/24 16:16 Freq: Status: Active Protocol: Document 11/08/24 16:17 [facility] (Rec: 11/08/24 16:39 [facility] Desktop) OT- Bed Mobility Assessment Supine to Sit Supine to Sit Assist Contact Guard Assistance Sit to Supine Sit to Supine Assist Contact Guard Assistance OT-Transfer Assessment Sit to and From Stand Sit to and from Contact Guard Assistance Stand Transfers Transfer Ability Contact Guard Assistance Technique Transfer Destination Bed,Chair Transfer Technique Stand Step Pivot Devices Transfer Assistive None,Gait Belt,Front Wheeled Walker Devices Comments Mobility Comments CGA as pt a bit unsteady on her feet. OT- Balance Assessment Sitting Balance and Reactions Static Sitting Normal Balance Ability Dynamic Sitting Good Balance Ability Standing Balance and Reactions Static Standing Good Balance Ability Dynamic Standing Fair Balance Ability M8 OT- IP Objective Assessments Start: 11/08/24 16:16 Freq: Status: Active Protocol: Document 11/08/24 16:17 [facility] (Rec: 11/08/24 16:39 [facility] Desktop) OT Gross Range of Motion Upper Extremity Range of Motion Assessment Right Impaired OT Strength Upper Extremity Strength Assessment Right Impaired Shoulder 3- Elbow 4+ Forearm 4+ Wrist 4 Hand 4 OT- Coordination Assessment Upper Extremity Finger to Nose Test Within Functional Limits M9 OT- IP Assessment and Plan Start: 11/08/24 16:16 Freq: Status: Active Protocol: Document 11/08/24 16:17 [facility] (Rec: 11/08/24 16:39 [facility] Desktop) OT Summary Assessment and Plan Potential Rehabilitation Good Potential Analytic Complexity Moderate at Evaluation Summary OT Impairments Strength,Balance,Functional Cognition,Functional Mobility,Dressing,Toileting,Bathing,Toilet Transfers, Shower Transfers,Activity Tolerance Progress Towards Slow Progress due to Medical Issues,Slow Progress due Goals to Activity Tolerance,Slow Progress due to Cognition Assessment Summary Pt MOD complexity and main barriers are steps, decreased functional cognition, decreased dynamic balance and activity tolerance. Pt will benefit from skilled rehab. Pt is very pleasant and cooperative. Pt scored 17/30 on the SLUMS which implies dementia, however pt states know not at her baseline. Pt also having hyponatremia which may be affecting her mentation as well. To reassess SLUMS, when NA+ numbers look better. Goals Self-Feeding Goal Independent Grooming Goal Independent Dressing Goal Independent Toileting Goal Independent Bathing Goal Independent Toilet Transfer Goal Independent Shower Transfer Goal Independent Days to Meet Goals 15 Frequency of Treatment Other frequency 5x/week Treatment Plan OT Treatment Plan ADL Training,Functional Cognition Training,Functional Mobility,Patient/Family Education,Discharge Planning Other Treatment Stand at sink for ADL needs. Recommendations and Next Treatment Focus Discharge Recommendations OT Discharge SNF Rehab Recommendations Transportation Needs Private Vehicle at Discharge
[2024-11-08] MEDS: TAMSULOSIN 0.4 MG CAPSULE PO (18:48)
[2024-11-09] VITALS (9 sets, daily range): BP systolic 97–109; BP diastolic 50–80; PULSE 65–98; RESP 14–18; TEMP 36.1–36.7; O2SAT 94–98
[2024-11-09 05:58] LABS: Add Manual Diff / Slide Review NO; Hematocrit 34.1 % (41-53); Hemoglobin 11.6 g/dL (13.5-17.5); Lymphocytes Absolute Auto 800 /uL (1100-4500); Mean Corpuscular HGB Conc 34.0 % (30-36); Mean Corpuscular Hemoglobin 27.5 PG (26-34); Mean Corpuscular Volume 81.0 fL (80-100); Platelet Count 232 X10^3/uL (150-400)
[2024-11-09 06:02] LABS: Blood Urea Nitrogen 30 mg/dL (9-20); Calcium 9.1 mg/dL (8.4-10.2); Carbon Dioxide 20 mmol/L (22-32); Chloride 98 mmol/L (98-107); Estimated Glomerular Filt Rate 50 mL/min (>60); Glucose 124 mg/dL (70-99); HEMOLYSIS < 15 (0-50); Potassium 3.6 mmol/L (3.4-5.1); Sodium 126 mmol/L (137-145)
[2024-11-09 06:22] LABS: Anisocytosis 2+; Macrocytosis 1+; Microcytosis 1+
[2024-11-09 06:33] LABS: Prostate Specific Antigen 0.957 ng/mL (0.10-4.00)
--- NOTE | 2024-11-09 07:25 | PM.PN.1 ---
Subjective Subjective Date Patient Seen: 11/09/24 Interval history: This is an 86 yo male to female (who goes by the name of Ashli) with transgender, Afib and previous UTI who presented with fatigue and weakness over the past 4 days. He denies any CP or palpatations. His HR was 150 and he was given one dose of 5 mg of Diliazem which reduced the HR to 80-90. He says that he has been experiencing the symptoms of a distended bladder and inability to urinate for several days or weeks. His UA shows 30-100 wbc's so he will be treated for a UTI. The urine culture and blood cultures are pending. He is very relieved to have received a Duffy catheter. 11/09/2024: He (she) is still showing signs of memory loss but is less confused and more engaged today. He tells me several different versions of his past urinary history, initially saying that he would never taken Flomax before or been treated for prostate hypertrophy and then telling me that he actually was on it before and ran out of it before this bladder outlet obstruction episode developed. He remains very thankful for the Duffy catheter and says that in the ED when it was placed several bags of urine came out. His [employer] PCP is Opal Johnson in the town of [place]. He lives on his niece's property, apparently with a very limited diet. 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 The hemoglobin is 11.6 with a creatinine of 1.36 and a potassium of 3.6. The urine culture is growing Gram-negative bacilli. The CRP is high at 10.9. The PSA is 0.957. The echocardiogram shows a 50-55% ejection fraction with mild tricuspid regurgitation and mild left ventricular hypertrophy. He will be started on apixaban. He mentions having had colon cancer surgery 3 months ago in [place] but later recants that dating and indicates it may have been several years ago. He(she) is alert and oriented x3. No apparent distress. Hearing loss present. Heart is irregularly irregular without murmur. Lungs are clear to auscultation bilaterally. Extremities have no ankle edema. A Duffy catheter is present. Skin has no rash or jaundice. 1. Atrial Fibrillation-rapid ventricular response apparently resolved with 5 mg of diltiazem. Initial EKG showed a rate of 177. Begin apixaban. 2. elevated troponin-troponin peaked at 0.072, dropping to 0.060. Echocardiogram with 50-55% EF, Mild MR, Moderate TR and mild LVH. Likely troponin leak due to the tachycardia. 3. Weakness- PT/OT consulted, uncertain what baseline is. 4. UTI with Bladder Outlet Obstruction-continue Duffy catheter, trial of tamsulosin, continue ceftriaxone pending urine culture - GNB. [facility] SNF placement as soon as tomorrow is possible. Plan will be to leave the catheter in for 1 week during the trial of tamsulosin and then trial him off of it. DVT prevention with Apixaban His niece is his backup decision maker. Exam Vital Signs (past 8 hours): - 11/09/24 00:00 11/09/24 04:00 Pulse Oximetry 94 95 Oxygen Delivery Method Room Air Room Air Oxygen Flow Rate 0 0 Oxygen Delivery Method Room Air Oxygen Flow Rate 0 Objective Labs 11/09/24 04:33 11/09/24 04:33 Labs: Laboratory Results - last 24 hr 11/08/24 11/08/24 11/09/24 06:20 10:05 04:33 WBC 10.3 RBC 4.21 L Hgb 11.6 L Hct 34.1 L MCV 81.0 MCH 27.5 MCHC 34.0 RDW 21.5 H Plt Count 232 Neut % (Auto) 77.9 H Lymph % (Auto) 8.3 L Campbell % (Auto) 12.7 Eos % (Auto) 0.6 L Baso % (Auto) 0.5 Neut # (Auto) 8000 H Lymph # (Auto) 800 L Campbell # (Auto) 1300 H Eos # (Auto) 100 Baso # (Auto) 100 Platelet Estimate Adequate on smear RBC Morphology See below Anisocytosis 2+ H Microcytosis 1+ H Macrocytosis 1+ H Sodium 126 L Potassium 3.6 Chloride 98 Carbon Dioxide 20 L BUN 30 H Creatinine 1.36 H Estimated GFR 50 L BUN/Creatinine Ratio 22.1 H Glucose 124 H Calcium 9.1 Troponin I 0.072 H 0.060 H C-Reactive Protein 10.9 H Prostate Specific Ag 0.957 PFSH Medical History Urinary tract infection Transgender female Social History household members: none Smoking Status: Never smoker Assessment & Plan Time-Based Coding :: [TOTAL MINUTES] spent with patient and on the chart (including review of chart, obtaining history, exam, reviewing outside data, placing orders, documenting exam and treatment plan, and counseling patient) on [DATE].
--- NOTE | 2024-11-09 07:26 | DI.ECHO.S_ITS ---
[facility] : : [address] : : [place] : : [id number] : : Phone: [phone] Echocardiogram Report + + :Name: MARAL CARDOZO Study Date: 11/09/2024 Height: 68 in : :[facility] ReadingLocation: Weight: 172 lb : : Gender: Male BSA: 1.9 m2 : :: 1935 Age: 89 yrs BP: 146/83 mmHg: :Reason For Study: ATRIAL FIBRILLATION : :Ordering Physician: ALAN, : :LAVON Cohen Performed By: Christa Ying : :Referring: LAVON PHILLIPS : + + Interpretation Summary - The left ventricular contractility is borderline. Estimated ejection fraction is approximately 50 to 55% with no segmental wall motion abnormalities. Mild concentric left ventricular hypertrophy. Unable to comment on diastolic function. - The right ventricular contractility is normal. - Biatrial enlargement noted. The right and left ventricular cavities are of normal size. - Mild mitral regurgitation. - Mild aortic insufficiency. - Moderate tricuspid regurgitation with estimated pulmonary systolic artery pressures of 39 mmHg. - Mild pulmonic insufficiency. - No obvious intracardiac shunts. - No obvious intracardiac masses nor thrombi. - No hemodynamically significant pericardial effusion. - Low right-sided filling pressures. Conclusion: Low normal left ventricular systolic function with mild to moderate valvular insufficiencies. Procedure: A two-dimensional transthoracic echocardiogram with color flow and Doppler was performed. The study quality was technically adequate. There is no prior echocardiogram noted for this patient. The patient had occasional PVCs during the exam. The patient was in atrial fibrillation with heart rates between 92-110 bpm during the exam. Left Ventricle: The left ventricle is normal in size. There is mild concentric left ventricular hypertrophy. The ejection fraction is estimated to be 50-55%. Diastolic function could not be accurately assessed due to atrial fibrillation. Right Ventricle: The right ventricle is normal size. The right ventricular systolic function is normal. Atria: The left atrium is severely dilated. The right atrium is mild to moderately dilated. There is no Doppler evidence for an interatrial shunt. Mitral Valve: The mitral valve leaflets are mildly calcified. There is mild mitral annular calcification. The mitral valve leaflets appear moderately thickened. Redundant elongated chordae are noted. There is mild mitral regurgitation. Aortic Valve: The aortic valve is trileaflet. The aortic valve opens well. There is no aortic valve stenosis. There is mild aortic regurgitation. Tricuspid Valve: The tricuspid valve leaflets are thin and pliable. There is moderate tricuspid regurgitation. The right ventricular systolic pressure is estimated to be at least 39 mmHg based on an estimated right atrial pressure of 3 mm Hg. Pulmonic Valve: The pulmonic valve is not well seen, but is grossly normal. There is mild pulmonic regurgitation. Great Vessels: The aortic root is normal size. The ascending aorta is at the upper limits of normal in size. The IVC is of normal diameter and collapses greater than 50% with a sniff. This suggests a low right atrial pressure of 3 mm Hg. Pericardium/ Pleura There is no pericardial effusion. There is no pleural effusion. MMode/2D Measurements & Calculations LVIDd: 5.2 cm LVOT diam: 2.2 cm LVIDs: 4.0 cm Ao root diam: 3.4 cm FS: 23.1 % asc Aorta Diam: 3.8 cm IVSd: 1.3 cm Ao Arch Diam (Prox Trans): 2.5 cm LVPWd: 1.2 cm LV lobo. diameter/BSA (cm/m^2): 2.7 LV sys. diameter/BSA (cm/m^2): 2.1 LA A2 area: 25.3 cm2 RA long axis: 6.4 cm LA A4 area: 24.6 cm2 RA area: 24.5 cm2 LA length (vol): 5.8 cm RA vol: 79.9 ml LA vol: 91.3 ml RA : 41.7 ml/m2 LA vol index: 47.6 ml/m2 IVC diam: 2.0 cm RVD1 (basal): 3.6 cm RVD2 (mid): 3.2 cm TAPSE: 1.4 cm Doppler Measurements & Calculations Ao V2 max: 163.6 cm/sec LVOT Max Shun: 83.9 cm/sec Ao V2 mean: 110.1 cm/sec LV V1 max P.8 mmHg Ao max P.9 mmHg LV V1 VTI: 13.7 cm Ao mean P.0 mmHg KANDICE(I,D): 2.2 cm2 Ao V2 VTI: 24.8 cm KANDICE(V,D): 2.0 cm2 sev ratio: 0.55 KANDICE indexed to BSA (cm^2/m^2): 1.1 AI P1/2t: 495.1 msec AI dec slope: 268.3 cm/sec2 MV E max shun: 85.5 cm/sec TR max shun: 298.7 cm/sec Med Peak E' Shun: 9.4 cm/sec TR max P.7 mmHg E/E' med: 9.1 PA V2 max: 85.2 cm/sec Lat Peak E' Shun: 10.8 cm/sec PA V2 mean: 59.2 cm/sec E/E' lat: 7.9 PA mean P.6 mmHg E/e' average: 8.5 PA pr(Accel): 43.0 mmHg MV dec time: 0.20 sec SV(LVOT): 54.0 ml Reading Physician:OLGA
[2024-11-09] MEDS: FUROSEMIDE 20 MG/2 ML VIAL IV ×3 (08:41→21:25)
[2024-11-09] MEDS: TAMSULOSIN 0.4 MG CAPSULE PO (08:42)
[2024-11-09] MEDS: PANTOPRAZOLE DR 20 MG TABLET PO ×2 (08:45→20:47)
[2024-11-09] MEDS: APIXABAN 5 MG TABLET 2.5 MG PO ×2 (12:00→20:47)
--- NOTE | 2024-11-09 12:05 | OT.IP.TRT ---
Current Diagnoses Unspecified atrial fibrillation (11/07/24) Occupational Therapy Treatment Note M2 OT-IP Current Condition Start: 11/08/24 16:16 Freq: Status: Active Protocol: Document 11/08/24 16:17 [facility] (Rec: 11/08/24 16:39 [facility] Desktop) Occupational Therapy Current Condition Current Condition Evaluation Date 11/08/24 Treatment Diagnosis A-fib, hyponatremia Diagnosis Onset Date 11/07/24 M3 OT- IP Subjective and Pain Start: 11/08/24 16:16 Freq: Status: Active Protocol: Document 11/09/24 12:27 [facility] (Rec: 11/09/24 12:35 [facility] Desktop) OT- Subjective Occupational Therapy Visit Type Type Treatment Note Visit Start Time 11:50 Visit Stop Time 12:05 Occupational Therapy Visit Comments Patient Comments Pt agreed to get to the sink for oral care and grooming needs. Patient/Caregiver To get better and be with her cat. Goals OT Pain Assessment Pain When Pain Assessed At Rest Pain Present Pain Present Denied Pain M4 OT- IP ADL's Start: 11/08/24 16:16 Freq: Status: Active Protocol: Document 11/09/24 12:27 [facility] (Rec: 11/09/24 12:35 [facility] Desktop) OT [id number] Comments OT Self-Feeding Not at meal time. Comments OT ADL-Grooming General Evaluation Grooming Ability Standby Assistance Comments OT Grooming Comments Pt able to do while standing FWW , however nursing came in to request pt sit down and telemonitor registering high HR. OT ADL-Oral Care General Eval Oral Care Ability Standby Assistance Comments Oral Care Comments Able to do while standing with FWW. OT ADL-Toileting General Evaluation Toileting Ability Total Assistance Comments OT Toileting Duffy in place Comments OT ADL-Bathing Comments OT Bathing Comments Not performed. M5 OT- IP IADL's Start: 11/08/24 16:16 Freq: Status: Active Protocol: Document 11/08/24 16:17 [facility] (Rec: 11/08/24 16:39 [facility] Desktop) OT-Instrumental Activities of Daily Living Home Safety Awareness Home Safety Comments Pt is not thinking well at this time. Pt states has been forgetting to take her medications. Pt states does not know how to set use alarm on the cell phone and only knows how to make calls. Medication Management Medication Pt will benefit from assist. Management Comments Money Management Money Management Pt states she pays the niece $1000 for rent, groceries Comments and transportation. Meal Preparation Meal Preparation Pt will benefit from assist for meal and to be sure Comments they are balanced. Pt states mainly just eats from cans -beans and tomato soup. Driving Driving Comments Pt does not drive. M6 OT- IP Functional Cognition Start: 11/08/24 16:16 Freq: Status: Active Protocol: Document 11/09/24 12:27 [facility] (Rec: 11/09/24 12:35 [facility] Desktop) Cognitive Factors Limiting Selfcare Function Cognitive Ability Level of Alertness Alert Attention Span Capable of Focused Attention,Capable of Sustained Ability Attention Ability to Follow Able to Follow One Step Commands Commands Memory Description Short Term Impaired Cognitive Comments Cognitive Assessment Pt able to follow commands better today and not as Comments impulsive today. Pt very pleasant and cooperative. M7 OT- IP Mobility and Balance Start: 11/08/24 16:16 Freq: Status: Active Protocol: Document 11/09/24 12:27 [facility] (Rec: 11/09/24 12:35 [facility] Desktop) OT- Bed Mobility Assessment Supine to Sit Supine to Sit Assist Standby Assistance OT-Transfer Assessment Sit to and From Stand Sit to and from Standby Assistance Stand Transfers Transfer Ability Contact Guard Assistance Technique Transfer Destination Bed,Chair Transfer Technique Stand Step Pivot Devices Transfer Assistive Gait Belt,Front Wheeled Walker Devices Comments Mobility Comments SBA to stand and occasional CGA while pt use of FWW. Pt states feeling very tired. BP 112/80 and HR 76-106 while seated. OT- Balance Assessment Sitting Balance and Reactions Static Sitting Normal Balance Ability Dynamic Sitting Good Balance Ability Standing Balance and Reactions Static Standing Good Balance Ability Dynamic Standing Fair Balance Ability M8 OT- IP Objective Assessments Start: 11/08/24 16:16 Freq: Status: Active Protocol: Document 11/08/24 16:17 [facility] (Rec: 11/08/24 16:39 [facility] Desktop) OT Gross Range of Motion Upper Extremity Range of Motion Assessment Right Impaired OT Strength Upper Extremity Strength Assessment Right Impaired Shoulder 3- Elbow 4+ Forearm 4+ Wrist 4 Hand 4 OT- Coordination Assessment Upper Extremity Finger to Nose Test Within Functional Limits M9 OT- IP Assessment and Plan Start: 11/08/24 16:16 Freq: Status: Active Protocol: Document 11/09/24 12:27 [facility] (Rec: 11/09/24 12:35 [facility] Desktop) OT Summary Assessment and Plan Potential Rehabilitation Good Potential Analytic Complexity Moderate at Evaluation Summary OT Impairments Strength,Balance,Functional Cognition,Functional Mobility,Dressing,Toileting,Bathing,Toilet Transfers, Shower Transfers,Activity Tolerance Progress Towards Progressing Toward Goals,Slow Progress due to Medical Goals Issues Assessment Summary Pt able to participate in oral care and grooming needs at the sink with FWW. Pt session cut short due to nursing states heart monitor states pt's HR high. Therefore assisted pt to the recliner. Pt will benefit from skilled rehab. Afterwards pt would from 07/09 available assist, memory care, AFH versus [facility]MK[facility]. Goals Self-Feeding Goal Independent Grooming Goal Independent Dressing Goal Independent Toileting Goal Independent Bathing Goal Independent Toilet Transfer Goal Independent Shower Transfer Goal Independent Days to Meet Goals 15 Frequency of Treatment Other frequency 5x/week Treatment Plan OT Treatment Plan ADL Training,Functional Cognition Training,Functional Mobility,Patient/Family Education,Discharge Planning Other Treatment Shower Recommendations and Next Treatment Focus Discharge Recommendations OT Discharge SNF Rehab Recommendations Transportation Needs Private Vehicle at Discharge
[2024-11-09] MEDS: ACETAMINOPHEN 325 MG TABLET 650 MG PO (14:08)
--- NOTE | 2024-11-09 15:07 | CM.DPNOTE ---
DCP Cont [facility] has accepted patient for admission 11/10. Valarie working on scheduling wc transport. Valarie at [facility] states they are re-arranging rooms so that patient can have a private room. [facility] cannot place patient with a female roommate but they want to respect patient's privacy and will not place with a male. Reviewed shared room expectation with patient and she states she does not prefer male or female, only hopes her roommate is a good roommate. Plan: Discharge to [facility] anticipated tomorrow 11/10 via wc van, time TBD. Patient updated and remains agreeable to plan. PASRR completed. NORA
[2024-11-10] VITALS (11 sets, daily range): BP systolic 111–160; BP diastolic 50–85; PULSE 68–180; RESP 18–20; TEMP 36.2–37; O2SAT 92–99
[2024-11-10] MEDS: FUROSEMIDE 20 MG/2 ML VIAL IV ×3 (06:04→21:46)
[2024-11-10] MEDS: PANTOPRAZOLE DR 20 MG TABLET PO ×2 (06:04→20:45)
[2024-11-10] MEDS: TAMSULOSIN 0.4 MG CAPSULE PO (08:54)
[2024-11-10] MEDS: APIXABAN 5 MG TABLET 2.5 MG PO ×2 (08:55→20:45)
[2024-11-10] MEDS: METOPROLOL ER 25 MG TABLET PO (10:08)
--- NOTE | 2024-11-10 15:00 | PT.IPTN ---
Current Diagnoses Unspecified atrial fibrillation (11/07/24) Physical Therapy Treatment Note M2 PT-IP Current Condition Start: 11/08/24 16:39 Freq: NEEDED Status: Active Protocol: Document 11/08/24 14:50 AB (Rec: 11/08/24 17:07 AB [id number]) Physical Therapy Current Condition Current Condition Evaluation Date 11/08/24 Treatment Diagnosis A-fib; hyponatremia; difficulty in walking Onset Date 11/07/24 M3 PT-IP Subjective Start: 11/08/24 16:39 Freq: NEEDED Status: Active Protocol: Document 11/10/24 15:00 AB (Rec: 11/10/24 18:01 AB [id number]) Subjective Physical Therapy Visit Type Type Treatment Note Visit Start Time 15:00 Visit Stop Time 15:25 Number of ADMINISTRATIVE DIETITIAN Visits 0 Physical Therapy Visit Comments Patient Comments agreeable to do PT M4 PT-IP Mobility and Gait Start: 11/08/24 16:39 Freq: NEEDED Status: Active Protocol: Document 11/10/24 15:00 AB (Rec: 11/10/24 18:01 AB [id number]) PT-Transfer Assessment Sit to and From Stand Sit to and from Minimal Assistance,1 Person Assistance,Use of Upper Stand Extremities Equipment Transfer Assistive Gait Belt,Large Based Quad Cane Device Orthotic/Prosthetic No Devices or Brace: Transfers Transfer Destination Chair Transfer Technique ambulated Transfer Ability Level of Assist Minimal Assistance,1 Person Assistance,Use of Upper Extremities Comments Mobility Comments pt sitting on EOB with nurse and NAC. pt just got a shower with nursing staff. c/o a headache. nurse stated that pt started metroprolol today. BP checked: 111/73 and IA 98. pt rested and agreed to ambulate. sit to stand from EOB min A and cues and ambulated in room using FWW~ 30 ft min to mod A and cues with (+) lateral LOB needing assist. pt with cognitive issues and gets easily distracted and with decrease safety awareness. pt c/o heaviness in his head. pt sat on chair. BP rechecked: 132/63 and IA varies from 79- 104. positioned pt on the chair. call light and table placed within reach. chair alarm on. informed nurse regarding BP, HR and c/o heaviness on his head. Gait Assessment Gait Gait Assistance Minimum Assistance,Moderate Assistance,1 Person Assist Required: Distance (Feet) 30 Able to Maintain Yes Weight Bearing Status During Gait Assistive Devices Assistive Device Gait Belt,Front Wheeled Walker Orthotic/Prosthetic No Devices or Brace: Gait Deviations General Gait Pattern Decreased Stride Length,Decreased Feet Clearance,Step- to Gait Factors Limiting Gait Function Factors Limiting Decreased Activity Tolerance,Decreased Sensation, Gait Function Decreased Strength,Difficulty Following Directions, Limited Range of Motion,Pain,Poor Balance,Poor Safety Awareness M5 PT-IP Objective Assessments Start: 11/08/24 16:39 Freq: NEEDED Status: Active Protocol: Document 11/08/24 14:50 AB (Rec: 11/08/24 17:07 AB [id number]) Orientation Orientation/Cognition Level of Alertness Alert Orientation Name,Place,Situation Language Function Hard of Hearing Ability Memory Description Short Term Impaired,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 Gross Range of Motion Lower Extremity ROM Assessment Within Functional Limits Strength Lower Extremity Strength Assessment Within Functional Limits Muscle Tone Muscle Tone WNL Yes M6 PT-IP Treatment Start: 11/08/24 16:39 Freq: NEEDED Status: Active Protocol: Document 11/10/24 15:00 AB (Rec: 11/10/24 18:01 AB [id number]) Physical Therapy Treatment Education Education Provided Safety M7 PT-IP Assessment and Plan Start: 11/08/24 16:39 Freq: NEEDED Status: Active Protocol: Document 11/10/24 15:00 AB (Rec: 11/10/24 18:01 AB [id number]) PT Summary Assessment and Plan Potential Rehabilitation Fair Potential Summary Impairments Pain,ROM,Strength,Balance,Coordination,Sensation,Tone, Cognition,Bed Mobility,Transfers,Gait,Activity Tolerance Progress Towards Slow Progress due to Medical Issues,Slow Progress due Goals to Activity Tolerance,Slow Progress - Other Assessment Summary pt requiring min to mod A with mobilities using FWW. pt with decrease safety awareness affecting mobility level. pt will require 24/ assist and will benefit from SNF rehab. Goals Bed Mobility Goal Independent Transfer Goal Independent,Front Wheeled Walker Gait Goal Independent,Front Wheel Walker Gait Distance 100 Other Goals improve transfers and ambulation without AD or LRAD ~ 200 ft mod I up/down 5 steps SPC SBA Days to Meet Goals 10 Frequency of Treatment Frequency Of Once a Day Treatment Treatment Plan Physical Therapy Bed Mobility Training,Transfer Training,Gait Training, Treatment Plan Therapeutic Exercise,Balance Retraining,Discharge Planning,Hot or Cold Pack,Neuromuscular Re-ed, Coordination Retraining,Manual Therapy Precautions Other Precautions falls Recommendations To Nursing Amount of Assist 1 Person Assist Needed Discharge Recommendations PT Discharge SNF Rehab Recommendations Transportation Needs Private Vehicle,Wheelchair/Cabulance at Discharge - PT assist 1
--- NOTE | 2024-11-10 15:10 | P.PN_ITS ---
Subjective Subjective Date Patient Seen: 11/10/24 Interval history: This is an 86 yo male to female (who goes by the name of Ashli) with transgender, Afib and previous UTI who presented with fatigue and weakness over the past 4 days. He denies any CP or palpatations. His HR was 150 and he was given one dose of 5 mg of Diliazem which reduced the HR to 80-90. He says that he has been experiencing the symptoms of a distended bladder and inability to urinate for several days or weeks. His UA shows 30-100 wbc's so he will be treated for a UTI. The urine culture and blood cultures are pending. He is very relieved to have received a Duffy catheter. 11/09/2024: He (she) is still showing signs of memory loss but is less confused and more engaged today. He tells me several different versions of his past urinary history, initially saying that he would never taken Flomax before or been treated for prostate hypertrophy and then telling me that he actually was on it before and ran out of it before this bladder outlet obstruction episode developed. He remains very thankful for the Duffy catheter and says that in the ED when it was placed several bags of urine came out. His CATEGORY MANAGER PCP is Opal Johnson in the town of [place]. He lives on his niece's property, apparently with a very limited diet. 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 The hemoglobin is 11.6 with a creatinine of 1.36 and a potassium of 3.6. The urine culture is growing Gram-negative bacilli. The CRP is high at 10.9. The PSA is 0.957. The echocardiogram shows a 50-55% ejection fraction with mild tricuspid regurgitation and mild left ventricular hypertrophy. He will be started on apixaban. He mentions having had colon cancer surgery 3 months ago in [place] but later recants that dating and indicates it may have been several years ago. 11/10: She (he) is feeling better this morning, agreeing to go to halfway facility and is in a good frame of mind. Shortly after my interview with him he was noted to go into AFib RVR with rates up to 180. He was given further diltiazem and started on metoprolol so will need to stay another day to stabilize. The sodium was 126 with a creatinine of 1.36 yesterday. The CRP was still quite high at 10.9. Those will be rechecked tomorrow. He continues with a Duffy catheter. E coli is growing in his urine culture. He(she) is alert and oriented x3. No apparent distress. Hearing loss present. Heart is irregularly irregular without murmur. Lungs are clear to auscultation bilaterally. Extremities have no ankle edema. A Duffy catheter is present. Skin has no rash or jaundice. 1. Atrial Fibrillation-rapid ventricular response apparently initially resolved with 5 mg of diltiazem. Initial EKG showed a rate of 177. Started on apixaban. -as he was preparing for discharge on 11/10 he went back into AFib RVR with rates up to 180 requiring 10 mg IV diltiazem to get down to a reasonable rate. He will be started on metoprolol 25 mg daily for rate control. 2. elevated troponin-troponin peaked at 0.072, dropping to 0.060. Echocardiogram with 50-55% EF, Mild MR, Moderate TR and mild LVH. Likely troponin leak due to the tachycardia. 3. Weakness- PT/OT consulted, uncertain what baseline is. He will be discharging to a halfway facility for continued rehab. 4. UTI with Bladder Outlet Obstruction-continue Duffy catheter, trial of tamsulosin, continue ceftriaxone for E coli, sensitive. Recheck CRP. No other clear etiology for the high inflammatory marker identified so far. [facility]. Plan will be to leave the catheter in for 1 week during the trial of tamsulosin and then trial him off of it on 11/15/2024. DVT prevention with Apixaban Her niece is her backup decision maker. Exam Vital Signs (past 8 hours): - 11/10/24 08:00 11/10/24 09:00 11/10/24 12:30 Temperature 97.1 F L 98.1 F Pulse Rate 88 180 H 68 Respiratory Rate 20 18 Blood Pressure 137/78 118/50 L 131/69 Pulse Oximetry 99 96 Oxygen Flow Rate 0 0 Oxygen Delivery Method Room Air Oxygen Flow Rate 0 Objective Labs 11/09/24 04:33 11/09/24 04:33 [facility] Medical History Urinary tract infection Transgender female Social History household members: none Smoking Status: Never smoker Assessment & Plan Time-Based Coding :: [TOTAL MINUTES] spent with patient and on the chart (including review of chart, obtaining history, exam, reviewing outside data, placing orders, documenting exam and treatment plan, and counseling patient) on [DATE].
[2024-11-10] MEDS: MAGNESIUM HYDROXIDE 30 ML UDC PO (22:11)
[2024-11-11] VITALS (8 sets, daily range): BP systolic 132–163; BP diastolic 72–88; PULSE 67–85; RESP 18–23; TEMP 35.9–36.7; O2SAT 92–98
[2024-11-11 05:49] LABS: Blood Urea Nitrogen 28 mg/dL (9-20); Calcium 9.8 mg/dL (8.4-10.2); Carbon Dioxide 25 mmol/L (22-32); Chloride 95 mmol/L (98-107); Estimated Glomerular Filt Rate > 60 mL/min (>60); Glucose 127 mg/dL (70-99); HEMOLYSIS < 15 (0-50); Potassium 3.8 mmol/L (3.4-5.1); Sodium 130 mmol/L (137-145)
[2024-11-11] MEDS: FUROSEMIDE 20 MG/2 ML VIAL IV ×2 (06:19→16:03)
[2024-11-11] MEDS: PANTOPRAZOLE DR 20 MG TABLET PO ×2 (06:19→20:21)
[2024-11-11] MEDS: METOPROLOL ER 25 MG TABLET PO (08:49)
[2024-11-11] MEDS: TAMSULOSIN 0.4 MG CAPSULE PO (08:49)
[2024-11-11] MEDS: APIXABAN 5 MG TABLET 2.5 MG PO ×2 (08:49→20:21)
--- NOTE | 2024-11-11 09:11 | PC.NURSE ---
Patient is pleasant, one person assist to the bathroom with walker. Duffy patent with yellow urine. Denies pain or discomfort. She is trying to have a BM at this time. Patient is alert and oriented x4 and will pull the cord when she is done. No other needs at this time.
--- NOTE | 2024-11-11 10:50 | CM.DPC ---
PILY left VM with Valarie at [facility]. PILY requested an update on possible admission this weekend. Valarie ph# [phone].
--- NOTE | 2024-11-11 13:08 | PC.NURSE ---
Patient is alert and oriented x4, she is pleasant and cooperative with care, up earlier to bathroom. Resting comfortably and did tolertate lunch well.
--- NOTE | 2024-11-11 13:40 | PT.IPTN ---
Current Diagnoses Unspecified atrial fibrillation (11/07/24) Physical Therapy Treatment Note M2 PT-IP Current Condition Start: 11/08/24 16:39 Freq: NEEDED Status: Active Protocol: Document 11/08/24 14:50 AB (Rec: 11/08/24 17:07 AB [id number]) Physical Therapy Current Condition Current Condition Evaluation Date 11/08/24 Treatment Diagnosis A-fib; hyponatremia; difficulty in walking Onset Date 11/07/24 M3 PT-IP Subjective Start: 11/08/24 16:39 Freq: NEEDED Status: Active Protocol: Document 11/11/24 13:40 AB (Rec: 11/11/24 16:57 AB Desktop) Subjective Physical Therapy Visit Type Type Treatment Note Visit Start Time 13:40 Visit Stop Time 14:00 Number of RAIL OPERATIONS CONTROLLER Visits 0 Physical Therapy Visit Comments Patient Comments agreeable to do PT M4 PT-IP Mobility and Gait Start: 11/08/24 16:39 Freq: NEEDED Status: Active Protocol: Document 11/11/24 13:40 AB (Rec: 11/11/24 16:57 AB Desktop) PT-Bed Mobility Assessment Supine to Sit Supine to Sit Maximum Assistance,1 Person Assistance,Head of Bed Elevated,Bedrails PT-Transfer Assessment Sit to and From Stand Sit to and from Minimal Assistance,1 Person Assistance,Use of Upper Stand Extremities Equipment Transfer Assistive Gait Belt,Front Wheeled Walker Device Orthotic/Prosthetic No Devices or Brace: Transfers Transfer Destination Chair Transfer Technique ambulated Transfer Ability Level of Assist Minimal Assistance,Moderate Assistance,1 Person Assistance,Use of Upper Extremities Comments Mobility Comments pt in bed and agreeable to get up. BP: 137/83. completed supine to sit HOB elevated max A and max cues . pt continues to have confusion/memory issues affecting safety awareness requiring cues with all tasks. pt can be impulsive. sit to stand from EOB min A and cues and pt ambulated in the hallway initial min A but needing mod A after a few feet and cues using FWW . (+) LOB during ambulation using mod A and max cues for steadiness. pt sat on chair. positioned pt on the chair. call light and table placed next to pt. chair alarm on. pt very impulsive and stand up without asking for assistance when PT was about to leave. assisted pt to sit back on chair. repositioned pt on the chair. and educated on safety and use of call light . chair alarm on. Gait Assessment Gait Gait Assistance Minimum Assistance,Moderate Assistance Required: Distance (Feet) 100 Able to Maintain Yes Weight Bearing Status During Gait Assistive Devices Assistive Device Gait Belt,Front Wheeled Walker Orthotic/Prosthetic No Devices or Brace: Gait Deviations General Gait Pattern Ataxic,Decreased Stride Length,Decreased Feet Clearance Factors Limiting Gait Function Factors Limiting Decreased Activity Tolerance,Decreased Strength, Gait Function Difficulty Following Directions,Limited Range of Motion ,Pain,Poor Balance,Poor Safety Awareness M5 PT-IP Objective Assessments Start: 11/08/24 16:39 Freq: NEEDED Status: Active Protocol: Document 11/08/24 14:50 AB (Rec: 11/08/24 17:07 AB [id number]) Orientation Orientation/Cognition Level of Alertness Alert Orientation Name,Place,Situation Language Function Hard of Hearing Ability Memory Description Short Term Impaired,Chair Impaired Gross Range of Motion Lower Extremity ROM Assessment Within Functional Limits Strength Lower Extremity Strength Assessment Within Functional Limits Muscle Tone Muscle Tone WNL Yes M6 PT-IP Treatment Start: 11/08/24 16:39 Freq: NEEDED Status: Active Protocol: Document 11/11/24 13:40 AB (Rec: 11/11/24 16:57 AB Desktop) Physical Therapy Treatment Education Education Provided Safety M7 PT-IP Assessment and Plan Start: 11/08/24 16:39 Freq: NEEDED Status: Active Protocol: Document 11/11/24 13:40 AB (Rec: 11/11/24 16:57 AB Desktop) PT Summary Assessment and Plan Potential Rehabilitation Fair Potential Summary Impairments Pain,ROM,Strength,Balance,Coordination,Sensation,Tone, Cognition,Bed Mobility,Transfers,Gait,Activity Tolerance Progress Towards Slow Progress due to Medical Issues,Slow Progress due Goals to Activity Tolerance,Slow Progress - Other Assessment Summary pt requiring min to mod A for ambulation using FWW. pt is impulsive and continues to have decrease safety awareness. pt will require SNF rehab to improve overall strength and mobility. Goals Bed Mobility Goal Independent Transfer Goal Independent,Front Wheeled Walker Gait Goal Independent,Front Wheel Walker Gait Distance 100 Other Goals improve transfers and ambulation without AD or LRAD ~ 200 ft mod I up/down 5 steps SPC SBA Days to Meet Goals 10 Frequency of Treatment Frequency Of Once a Day Treatment Treatment Plan Physical Therapy Bed Mobility Training,Transfer Training,Gait Training, Treatment Plan Therapeutic Exercise,Balance Retraining,Discharge Planning,Hot or Cold Pack,Neuromuscular Re-ed, Coordination Retraining,Manual Therapy Precautions Other Precautions falls Recommendations To Nursing Amount of Assist 1 Person Assist Needed Discharge Recommendations PT Discharge SNF Rehab Recommendations Transportation Needs Private Vehicle,Wheelchair/Cabulance at Discharge - PT assist 1
[2024-11-11] MEDS: SODIUM CHLORIDE 0.9% FLUSH 10 ML IV ×2 (16:03→20:22)
--- NOTE | 2024-11-11 17:38 | PM.PN.1 ---
Subjective Subjective Date Patient Seen: 11/11/24 Time Patient Seen: 17:38 Interval history: This is an 86 yo male to female (who goes by the name of Ashli) with transgender, Afib and previous UTI who presented with fatigue and weakness over the past 4 days. He denies any CP or palpatations. His HR was 150 and he was given one dose of 5 mg of Diliazem which reduced the HR to 80-90. He says that he has been experiencing the symptoms of a distended bladder and inability to urinate for several days or weeks. His UA shows 30-100 wbc's so he will be treated for a UTI. The urine culture and blood cultures are pending. He is very relieved to have received a Duffy catheter. 11/09/2024: He (she) is still showing signs of memory loss but is less confused and more engaged today. He tells me several different versions of his past urinary history, initially saying that he would never taken Flomax before or been treated for prostate hypertrophy and then telling me that he actually was on it before and ran out of it before this bladder outlet obstruction episode developed. He remains very thankful for the Duffy catheter and says that in the ED when it was placed several bags of urine came out. His SET OFF BLOCKER PCP is Opal Johnson in the town of [place]. He lives on his niece's property, apparently with a very limited diet. 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 The hemoglobin is 11.6 with a creatinine of 1.36 and a potassium of 3.6. The urine culture is growing Gram-negative bacilli. The CRP is high at 10.9. The PSA is 0.957. The echocardiogram shows a 50-55% ejection fraction with mild tricuspid regurgitation and mild left ventricular hypertrophy. He will be started on apixaban. He mentions having had colon cancer surgery 3 months ago in [place] but later recants that dating and indicates it may have been several years ago. 11/10: She (he) is feeling better this morning, agreeing to go to long-term facility and is in a good frame of mind. Shortly after my interview with him he was noted to go into AFib RVR with rates up to 180. He was given further diltiazem and started on metoprolol so will need to stay another day to stabilize. The sodium was 126 with a creatinine of 1.36 yesterday. The CRP was still quite high at 10.9. Those will be rechecked tomorrow. He continues with a Duffy catheter. E coli is growing in his urine culture. 11/11: She is calm and continues to be impressed by how much better she feels after the diuresis the last few days. There is minimal reddish staining of the fluid in the catheter but not in the bag. We are planning to remove the catheter on 11/15. The long-term facility that had accepted her yesterday has not responded with any indication that they can accept her over the weekend so she may end up staying until 11/13, unfortunately. Yesterday she was kept because of the AFib RVR recurrence and that has not occurred today since the metoprolol was started yesterday. The CRP has dropped substantially down to 4.1. No cause for the elevation other than the UTI has been found. We will change the Lasix to oral at this time. The creatinine is now back down to 1.14. He(she) is alert and oriented x3. No apparent distress. Hearing loss present. Heart is irregularly irregular without murmur. Lungs are clear to auscultation bilaterally. Extremities have no ankle edema. A Duffy catheter is present with light pink discoloration in the tube but not the bag. Skin has no rash or jaundice. 1. Atrial Fibrillation-rapid ventricular response/heart failure: Apparently initially resolved with 5 mg of diltiazem on day 1. Initial EKG showed a rate of 177. Started on apixaban. -as he was preparing for discharge on 11/10 he went back into AFib RVR with rates up to 180 requiring 10 mg IV diltiazem to get down to a reasonable rate. He was started on metoprolol 25 mg daily for rate control. No recurrence on 11/11. -looking somewhat dry on 11/11 so the Lasix will be changed to 20 mg p.o. twice daily. 2. elevated troponin-troponin peaked at 0.072, dropping to 0.060. Echocardiogram with 50-55% EF, Mild MR, Moderate TR and mild LVH. Likely troponin leak due to the tachycardia. 3. Weakness- PT/OT consulted, uncertain what baseline is. He will be discharging to a long-term facility for continued rehab. 4. UTI with Bladder Outlet Obstruction-continue Duffy catheter, trial of tamsulosin, continue ceftriaxone for E coli, sensitive. Recheck CRP 11/11 is back down to 4.1. No other clear etiology for the high inflammatory marker identified so far. [facility] SNF placement as soon as tomorrow is possible. Plan will be to leave the catheter in for 1 week during the trial of tamsulosin and then trial him off of it on 11/15/2024. DVT prevention with Apixaban Her niece is her backup decision maker. Exam Vital Signs (past 8 hours): - 11/11/24 12:39 11/11/24 13:00 11/11/24 16:22 Temperature 97.3 F L 97.5 F L Pulse Rate 77 67 Respiratory Rate 23 19 Blood Pressure 134/74 155/88 H Pulse Oximetry 95 96 Oxygen Delivery Method Room Air Oxygen Flow Rate 0 0 11/11/24 16:39 Temperature Pulse Rate Respiratory Rate Blood Pressure Pulse Oximetry Oxygen Delivery Method Room Air Oxygen Flow Rate Oxygen Delivery Method Room Air Oxygen Flow Rate 0 Objective Labs 11/09/24 04:33 11/11/24 04:55 Labs: Laboratory Results - last 24 hr 11/11/24 04:55 Sodium 130 L Potassium 3.8 Chloride 95 L Carbon Dioxide 25 BUN 28 H Creatinine 1.14 Estimated GFR > 60 BUN/Creatinine Ratio 24.6 H Glucose 127 H Calcium 9.8 C-Reactive Protein 4.1 H PFSH Medical History Urinary tract infection Transgender female Social History household members: none Smoking Status: Never smoker Assessment & Plan Time-Based Coding :: [TOTAL MINUTES] spent with patient and on the chart (including review of chart, obtaining history, exam, reviewing outside data, placing orders, documenting exam and treatment plan, and counseling patient) on [DATE].
[2024-11-12] VITALS (8 sets, daily range): BP systolic 110–169; BP diastolic 66–94; PULSE 64–90; RESP 13–20; TEMP 35.8–36.1; O2SAT 94–98
[2024-11-12] MEDS: PANTOPRAZOLE DR 20 MG TABLET PO ×2 (06:12→20:55)
[2024-11-12 06:16] LABS: Add Manual Diff / Slide Review NO; Hematocrit 37.0 % (41-53); Hemoglobin 12.6 g/dL (13.5-17.5); Lymphocytes Absolute Auto 1900 /uL (1100-4500); Mean Corpuscular HGB Conc 33.9 % (30-36); Mean Corpuscular Hemoglobin 27.6 PG (26-34); Mean Corpuscular Volume 81.4 fL (80-100); Platelet Count 293 X10^3/uL (150-400)
[2024-11-12 06:26] LABS: Blood Urea Nitrogen 30 mg/dL (9-20); Calcium 10.6 mg/dL (8.4-10.2); Carbon Dioxide 25 mmol/L (22-32); Chloride 99 mmol/L (98-107); Estimated Glomerular Filt Rate > 60 mL/min (>60); Glucose 108 mg/dL (70-99); HEMOLYSIS < 15 (0-50); Potassium 4.2 mmol/L (3.4-5.1); Sodium 132 mmol/L (137-145)
[2024-11-12] MEDS: FUROSEMIDE 20 MG TABLET PO ×2 (07:02→18:22)
--- NOTE | 2024-11-12 08:08 | PC.NURSE ---
Patient is alert and oriented x3, forgetful at times. She is just waking up. Denies pain and bp 160s/90s. Will give patient her blood pressure medication now. Voices no complaints.
[2024-11-12] MEDS: SODIUM CHLORIDE 0.9% FLUSH 10 ML IV ×2 (08:54→22:16)
[2024-11-12] MEDS: METOPROLOL ER 25 MG TABLET PO (08:54)
[2024-11-12] MEDS: TAMSULOSIN 0.4 MG CAPSULE PO (08:54)
[2024-11-12] MEDS: APIXABAN 5 MG TABLET 2.5 MG PO ×2 (08:54→20:55)
--- NOTE | 2024-11-12 12:24 | P.PN_ITS ---
Subjective Subjective Interval history: 89-year-old transgender female with permanent atrial fibrillation on chronic Eliquis anticoagulation as well as history of urinary tract infections BPH with bladder outlet obstruction admitted with AFib with RVR, demand ischemia, generalized weakness, and urinary tract infection. She was found to have an E coli UTI which was resistant to levofloxacin, ciprofloxacin, and intermediately sensitive to cefazolin. Grant catheter was also required due to urinary retention. Today she reports that she is feeling better overall but continues to be very fatigued when she gets up to go to the bathroom. She states she was confused on admission and does not recall much about the day she came in. She notes she lives in [place] [address] in a trailer [place] her [facility] [place] property. She moved from [facility] 5 years ago. She is 1 remaining sibling a sister who is 97 years old and remains in [place]. Exam Vital Signs (past 8 hours): - 11/12/24 04:57 11/12/24 05:00 11/12/24 08:00 Temperature 96.6 F L 96.7 F L Pulse Rate 77 79 Respiratory Rate 18 13 Blood Pressure 164/90 H 166/94 H Pulse Oximetry 97 96 94 Oxygen Delivery Method Room Air Oxygen Flow Rate 0 11/12/24 09:00 Temperature Pulse Rate Respiratory Rate Blood Pressure Pulse Oximetry Oxygen Delivery Method Room Air Oxygen Flow Rate Oxygen Delivery Method Room Air Oxygen Flow Rate 0 Narrative Exam Narrative: GEN: Elderly transgender female, Alert and oriented x 3, NAD HEENT:NC, Face symmetric CHEST: Respiratory excursions symmetric, CTAB CV: Irregularly irregular, rate controlled, no M/R/G ABD: Soft, NT/ND, BT present in all 4 quadrants, no organomegaly or masses EXTR: warm, well perfused, no C/C/E SKIN: warm and dry, no rash NEURO: Alert and oriented x 3, nonfocal Objective Labs 11/12/24 05:37 11/12/24 05:37 Labs: Laboratory Results - last 24 hr 11/12/24 05:37 WBC 9.0 RBC 4.55 Hgb 12.6 L Hct 37.0 L MCV 81.4 MCH 27.6 MCHC 33.9 RDW 20.8 H Plt Count 293 Neut % (Auto) 59.1 Lymph % (Auto) 21.0 L [place] % (Auto) 14.2 H Eos % (Auto) 4.3 H Baso % (Auto) 1.4 Neut # (Auto) 5300 Lymph # (Auto) 1900 [place] # (Auto) 1300 H Eos # (Auto) 400 Baso # (Auto) 100 Sodium 132 L Potassium 4.2 Chloride 99 Carbon Dioxide 25 BUN 30 H Creatinine 1.10 Estimated GFR > 60 BUN/Creatinine Ratio 27.3 H Glucose 108 H Calcium 10.6 H C-Reactive Protein 3.0 H PFSH Medical History Urinary tract infection Transgender female Social History household members: none Smoking Status: Never smoker Assessment & Plan Assessment & Plan narrative: 1. E coli UTI She has received a total of 5 doses of IV ceftriaxone. Will transition to doxycycline for 5 additional days. 2. Bladder outlet obstruction d/t BPH, s/p grant catheter placement Continue tamsulosin 0.4 mg daily. Continue grant catheter. Would recommend voiding trial in 1 week and f/u with urology. 3. Permanent a fib Rate controlled. Will d/c telemetry. Continue metoprolol and apixaban 4. Mild valvular disease, including mild mitral regurgitation, mild aortic regurgitation, moderate tricuspid regurgitation, and mild pulmonic regurgitation. Identified on echocardiogram done November 09 5. Acute CHF with preserved ejection fraction BNP was 5480 on admission. LV ejection fraction was 50-55%. Symptoms are well controlled on oral Lasix. Sodium has improved from 126-132 this morning. Renal function has improved as well with a BUN stable at 30 and creatinine improved from 1.36-1.10. This will be continued. Code status Full Prophylaxis On Eliquis Disposition Pending acceptance to [facility]. Time-Based Coding :: [TOTAL MINUTES] spent with patient and on the chart (including review of chart, obtaining history, exam, reviewing outside data, placing orders, documenting exam and treatment plan, and counseling patient) on [DATE].
[2024-11-12] MEDS: DOXYCYCLINE HYCLATE 100 MG TABLET PO ×2 (13:48→20:55)
--- NOTE | 2024-11-12 16:00 | CM.DPNOTE ---
DCP note CDC ASSOCIATE reviewed EMR per provider, medically stable today. CDC ASSOCIATE lvm with Valarie at [facility], no response as of 1600. per Jens, Medicaid LT ppwk complete and left with nurse. per wonderful night shift supervisor nurse, placed ppwk in red chart. CDC ASSOCIATE faxed in Medicaid LTC sandra along with expedited form. CDC ASSOCIATE updated pt in room. remains agreeable to dc to [facility]. mostly concerned about seeing her cat again. PASRR previously completed. P: anticipate return to [facility] once able to coordinate (likely Wednesday) transport with facility vehicle. Will continue to follow closely for DCP Coordination ADRIÁN Gabriel
[2024-11-13] VITALS: BP 125/70; PULSE 79; RESP 17; TEMP 36.3; O2SAT 94
[2024-11-13 05:03] LABS: Add Manual Diff / Slide Review NO; Hematocrit 37.7 % (41-53); Hemoglobin 12.7 g/dL (13.5-17.5); Lymphocytes Absolute Auto 1900 /uL (1100-4500); Mean Corpuscular HGB Conc 33.5 % (30-36); Mean Corpuscular Hemoglobin 27.2 PG (26-34); Mean Corpuscular Volume 81.2 fL (80-100); Platelet Count 303 X10^3/uL (150-400)
[2024-11-13 05:06] LABS: Blood Urea Nitrogen 27 mg/dL (9-20); Calcium 10.3 mg/dL (8.4-10.2); Carbon Dioxide 26 mmol/L (22-32); Chloride 99 mmol/L (98-107); Estimated Glomerular Filt Rate > 60 mL/min (>60); Glucose 111 mg/dL (70-99); HEMOLYSIS < 15 (0-50); Potassium 4.1 mmol/L (3.4-5.1); Sodium 131 mmol/L (137-145)
[2024-11-13] MEDS: PANTOPRAZOLE DR 20 MG TABLET PO ×2 (06:19→21:22)
[2024-11-13 08:00] VITALS: BP 152/77; PULSE 80; RESP 16; TEMP 36.6; O2SAT 95
[2024-11-13] MEDS: TAMSULOSIN 0.4 MG CAPSULE PO (09:08)
[2024-11-13] MEDS: METOPROLOL ER 25 MG TABLET PO (09:08)
[2024-11-13] MEDS: DOXYCYCLINE HYCLATE 100 MG TABLET PO ×2 (09:08→21:22)
[2024-11-13] MEDS: APIXABAN 5 MG TABLET 2.5 MG PO ×2 (09:08→21:22)
[2024-11-13] MEDS: FUROSEMIDE 20 MG TABLET PO ×2 (09:08→17:59)
[2024-11-13] MEDS: SODIUM CHLORIDE 0.9% FLUSH 10 ML IV ×2 (09:09→21:23)
--- NOTE | 2024-11-13 09:28 | P.DS_ITS ---
History of Present Illness History of Present Illness Date Patient Seen: 11/13/24 Chief complaint: flu like symptoms, N/V/D Narrative: Chief complaint: Flu like symptoms, N/V/D History of present illness: This is an 86 yo male to female (who goes by the name of Ashli) with transgender, Afib and previous UTI who presented with fatigue and weakness over the past 4 days. He denies any CP or palpatations. His HR was 150 and he was given one dose of 5 mg of Diliazem which reduced the HR to 80-90. He says that he has been experiencing the symptoms of a distended bladder and inability to urinate for several days or weeks. His UA shows 30-100 wbc's so he will be treated for a UTI. The urine culture and blood cultures are pending. He is very relieved to have received a Grant catheter. He is alert and oriented x3. No apparent distress. Hearing loss present. Pupils are equally round and reactive to light and accommodation. Extraocular muscles are intact. Sclerae are pink and nonicteric. Throat looks normal. No lymph nodes are felt head, neck, supraclavicular area. There is no thyromegaly. JVD is less than 6 cm. No carotid bruits are heard. Heart is irregularly irregular without murmur. Lungs are clear to auscultation bilaterally. Abdomen is soft, bowel sounds positive, nontender, no organomegaly. Extremities have no ankle edema. A Grant catheter is present. Skin has no rash or jaundice. Cranial nerves 2-12 test intact. Motor function is 3/5 bilaterally and symmetrically. There is no tremor. Reflexes are symmetric. Hospital course: She was found to have an E coli UTI which was resistant to levofloxacin, ciprofloxacin, and intermediately sensitive to cefazolin. Grant catheter was also required due to urinary retention. Today she reports that she is feeling better overall but continues to be very fatigued when she gets up to go to the bathroom. She states she was confused on admission and does not recall much about the day she came in. She notes she lives in [place] on [address] in a trailer on her nieces property. She moved from [facility] 5 years ago. She is 1 remaining sibling a sister who is 97 years old and remains in [place]. Review of systems: No rigors No chest pain shortness for Is having some discomfort in her feet 1. E coli UTI She has received a total of 5 doses of IV ceftriaxone. Will transition to doxycycline for 5 additional days. 2. Bladder outlet obstruction d/t BPH, s/p grant catheter placement Continue tamsulosin 0.4 mg daily. Continue grant catheter. Would recommend voiding trial in 1 week and f/u with urology. 3. Permanent a fib Rate controlled. Will d/c telemetry. Continue metoprolol and apixaban 4. Mild valvular disease, including mild mitral regurgitation, mild aortic regurgitation, moderate tricuspid regurgitation, and mild pulmonic regurgitation. Identified on echocardiogram done November 09 5. Acute CHF with preserved ejection fraction BNP was 5480 on admission. LV ejection fraction was 50-55%. Symptoms are well controlled on oral Lasix. Sodium has improved from 126-132 this morning. Renal function has improved as well with a BUN stable at 30 and creatinine improved from 1.36-1.10. This will be continued. Code status Full Prophylaxis On [facility] Disposition Pending acceptance to [facility]. STEAM TENDER updated pt in room. remains agreeable to dc to [facility]. mostly concerned about seeing her cat again. PASRR previously completed. P: anticipate return to [facility] once able to coordinate (likely Wednesday) transport with facility vehicle. Will continue to follow closely for DCP Coordinatio Time-Based Coding 35 minutes were involved with the management of this patient including [id number] evaluation discussion with health care legal assistantsales manager [place] of prescriptions objective laboratory data Discharge Providers Provider Date of admission: 11/07/24 23:47 Discharge Date: 11/13/24 Consults: 11/08/24 12:38 Consult to Physical Therapy Evaluate & Treat Comment: Physician Instructions: Evaluate and Treat 11/08/24 12:39 Consult to Occupational Therapy Evaluate & Treat Comment: Physician Instructions: Evaluate and treat 11/09/24 11:39 Consult to Pharmacy Routine Comment: high fall risk 11/09/24 20:08 Consult to Pharmacy Routine Comment: history of falls, and patient doesnt know her Rx's 11/10/24 12:55 Consult to Pharmacy Routine Comment: high fall risk Discharge provider: Bayrno Baez MD Exam Vital Signs (past 8 hours): - 11/13/24 05:00 11/13/24 08:00 Temperature 97.8 F Pulse Rate 80 Respiratory Rate 16 Blood Pressure 152/77 H Pulse Oximetry 95 Oxygen Delivery Method Room Air Oxygen Flow Rate 0 Oxygen Delivery Method Room Air Oxygen Flow Rate 0 Objective Labs 11/13/24 04:48 11/13/24 04:48 Labs: Laboratory Results - last 24 hr 11/13/24 04:48 WBC 11.1 H RBC 4.65 Hgb 12.7 L Hct 37.7 L MCV 81.2 MCH 27.2 MCHC 33.5 RDW 20.9 H Plt Count 303 Neut % (Auto) 64.4 Lymph % (Auto) 17.3 L [place] % (Auto) 14.3 H Eos % (Auto) 3.8 Baso % (Auto) 0.2 Neut # (Auto) 7100 H Lymph # (Auto) 1900 [place] # (Auto) 1600 H Eos # (Auto) 400 Baso # (Auto) 0 Sodium 131 L Potassium 4.1 Chloride 99 Carbon Dioxide 26 BUN 27 H Creatinine 1.12 Estimated GFR > 60 BUN/Creatinine Ratio 24.1 H Glucose 111 H Calcium 10.3 H PFSH Medical History Urinary tract infection Transgender female Social History household members: none Smoking Status: Never smoker Discharge Plan Discharge Plan Patient Disposition: SNF Under care of provider: Facility MD Discharge orders & Medications Prescriptions: New furosemide 20 mg Tablet 20 mg PO 0800,1700 Qty: 60 0RF metoprolol succinate 25 mg Tablet Extended Release 24 Hr 25 mg PO DAILY Qty: 30 0RF Rx Instructions: hold for SBP<110 or HR<55 tamsulosin 0.4 mg Capsule 0.4 mg PO DAILY Qty: 30 0RF doxycycline hyclate 100 mg Tablet 100 mg PO BID Qty: 14 0RF Continued Eliquis 2.5 mg tablet 2.5 mg PO BID Discharge Health Status Precautions: [place] Diet/Activity/Treatments Diet: Diet as Tolerated and Regular Liquid consistency: Normal/Thin Food texture: Regular Activity: As tolerated Catheter: 2-way Grant Catheter comment: Voiding trial to be initiated on 11/20/24. If no UOP in 8 hrs, replace grant Oxygen: N/A Special Rehabilitation Services Reason for rehabilitation: Recovery r/t decondition Rehab type: Physical therapy and Occupational therapy Visit Report/Discharge Packet Stand Alone Forms: Patient Portal/API
--- NOTE | 2024-11-13 10:20 | PT.IPTN ---
Current Diagnoses Unspecified atrial fibrillation (11/07/24) Physical Therapy Treatment Note M2 PT-IP Current Condition Start: 11/08/24 16:39 Freq: NEEDED Status: Active Protocol: Document 11/08/24 14:50 AB (Rec: 11/08/24 17:07 AB [id number]) Physical Therapy Current Condition Current Condition Evaluation Date 11/08/24 Treatment Diagnosis A-fib; hyponatremia; difficulty in walking Onset Date 11/07/24 M3 PT-IP Subjective Start: 11/08/24 16:39 Freq: NEEDED Status: Active Protocol: Document 11/13/24 10:07 AMB (Rec: 11/13/24 10:20 AMB [id number]) Subjective Physical Therapy Visit Type Type Treatment Note Visit Start Time 09:45 Visit Stop Time 10:00 Number of KITCHEN AND COUNTER WORKER Visits 0 Physical Therapy Visit Comments Patient Comments agreeable to do PT Therapy Pain Assessment Pain When Pain Assessed During Mobility Pain Present Pain Present Pain Reported M4 PT-IP Mobility and Gait Start: 11/08/24 16:39 Freq: NEEDED Status: Active Protocol: Document 11/13/24 10:07 AMB (Rec: 11/13/24 10:20 AMB [id number]) PT-Bed Mobility Assessment Supine to Sit Supine to Sit Minimal Assistance,1 Person Assistance,Head of Bed Elevated,Bedrails PT-Transfer Assessment Sit to and From Stand Sit to and from Minimal Assistance,1 Person Assistance,Use of Upper Stand Extremities Equipment Transfer Assistive Gait Belt,Front Wheeled Walker Device Orthotic/Prosthetic No Devices or Brace: Transfer Ability Level of Assist Minimal Assistance,1 Person Assistance,Use of Upper Extremities Comments Mobility Comments Pt agreeable to get up. Reports new onset bilateral foot pain. States talked to MD about it this morning. Pain is present at rest but increases as soon as weightbearing significantly. Able to stand and stand pivot with FWW to recliner but denies any further ambulation due to new onset foot pain. Gait Assessment Gait Distance (Feet) 0 Factors Limiting Gait Function Factors Limiting Decreased Activity Tolerance,Decreased Strength, Gait Function Difficulty Following Directions,Limited Range of Motion ,Pain,Poor Balance,Poor Safety Awareness M5 PT-IP Objective Assessments Start: 11/08/24 16:39 Freq: NEEDED Status: Active Protocol: Document 11/08/24 14:50 AB (Rec: 11/08/24 17:07 AB [id number]) Orientation Orientation/Cognition Level of Alertness Alert Orientation Name,Place,Situation Language Function Hard of Hearing Ability Memory Description Short Term Impaired,High Heel Builder Impaired Gross Range of Motion Lower Extremity ROM Assessment Within Functional Limits Strength Lower Extremity Strength Assessment Within Functional Limits Muscle Tone Muscle Tone WNL Yes M6 PT-IP Treatment Start: 11/08/24 16:39 Freq: NEEDED Status: Active Protocol: Document 11/11/24 13:40 AB (Rec: 11/11/24 16:57 AB Desktop) Physical Therapy Treatment Education Education Provided Safety M7 PT-IP Assessment and Plan Start: 11/08/24 16:39 Freq: NEEDED Status: Active Protocol: Document 11/13/24 10:07 AMB (Rec: 11/13/24 10:20 AMB [id number]) PT Summary Assessment and Plan Potential Rehabilitation Fair Potential Summary Impairments Pain,ROM,Strength,Balance,Coordination,Sensation,Tone, Cognition,Bed Mobility,Transfers,Gait,Activity Tolerance Progress Towards Slow Progress due to Medical Issues,Slow Progress due Goals to Activity Tolerance,Slow Progress - Other Assessment Summary Pt not tolerating gait today due to new onset bilateral foot pain with weightbearing. Was able to briefly tolerate stand pivot transfer but reported 9/10 pain. Left patient upright in recliner with chair alarm and call light within reach. require SNF rehab to improve overall strength and mobility. Goals Bed Mobility Goal Independent Transfer Goal Independent,Front Wheeled Walker Gait Goal Independent,Front Wheel Walker Gait Distance 100 Other Goals improve transfers and ambulation without AD or LRAD ~ 200 ft mod I up/down 5 steps SPC SBA Days to Meet Goals 10 Frequency of Treatment Frequency Of Once a Day Treatment Treatment Plan Physical Therapy Bed Mobility Training,Transfer Training,Gait Training, Treatment Plan Therapeutic Exercise,Balance Retraining,Discharge Planning,Hot or Cold Pack,Neuromuscular Re-ed, Coordination Retraining,Manual Therapy
--- NOTE | 2024-11-13 15:02 | PC.NURSE ---
Patient resting comfortably.
--- NOTE | 2024-11-13 16:31 | CM.DPNOTE ---
DCP note OPEN HEARTH WORKER reviewed EMR per provider cleared to dc to [facility] SNF. per Valarie, unable to accept today. have her set up for tomorrow transport around 10am. OPEN HEARTH WORKER updated provider/niece. pt sleeping soundly. P: dc tomorrow to [facility] at 10am. CM team will continue to follow closely for DCP coordination ADRIÁN Gabriel
[2024-11-13 19:00] VITALS: BP 100/82; PULSE 92; RESP 18; TEMP 36.4; O2SAT 94
[2024-11-13 22:00] VITALS: O2SAT 94
[2024-11-14 02:00] VITALS: O2SAT 95
[2024-11-14 06:00] VITALS: O2SAT 94
[2024-11-14] MEDS: PANTOPRAZOLE DR 20 MG TABLET PO (06:08)
[2024-11-14 08:00] VITALS: BP 124/53; PULSE 73; RESP 18; TEMP 36.4; O2SAT 94
[2024-11-14] MEDS: DOXYCYCLINE HYCLATE 100 MG TABLET PO (08:54)
[2024-11-14] MEDS: APIXABAN 5 MG TABLET 2.5 MG PO (08:55)
[2024-11-14] MEDS: TAMSULOSIN 0.4 MG CAPSULE PO (08:55)
[2024-11-14 08:56] VITALS: BP 114/68; PULSE 79
[2024-11-14] MEDS: METOPROLOL ER 25 MG TABLET PO (08:56)
[2024-11-14] MEDS: SODIUM CHLORIDE 0.9% FLUSH 10 ML IV (09:03)
[2024-11-14] MEDS: FUROSEMIDE 20 MG TABLET PO (09:03)
[2024-11-14 10:00] VITALS: O2SAT 96
--- NOTE | 2024-11-14 10:38 | PC.NURSE ---
Patient Is A&OX2. VSS, afebrile on RA. Patient is pleasant and verbalizes eagerness to transport to [facility]. She states I'll be closer to my doreen! Patient denies SOB or dizziness with mobilizing. She eats 100 % of breakfast. She reports some B feet soreness, but it's better than yesterday. The doctor said it was residual tenderness from swelling. Duffy cather in place. Report called to [facility] receiving RN. Needed clarification about voiding trial vs. Urology appointment on 11/20. Awaiting follow up from PILY Merritt to notify.
--- NOTE | 2024-11-14 12:45 | CM.DPNOTE ---
DCP Note DIESEL ENGINE TESTER reviewed EMR per provider cleared for DC today. DIESEL ENGINE TESTER updated FOOD SERVICE DIRECTOR/RN/gave Rn report number on p/u at 10am. DIESEL ENGINE TESTER emailed dc summary/med list/scripts/PASRR to Valarie at [facility]. Placed meds/script/PASRR in chart Recieved call from [facility] intake Sara Genao P [phone] about pt's Medicaid LTC sandra. DIESEL ENGINE TESTER updated her that pt already dc'd to [facility] P dc today to [facility]. no further CM needs at this time. will continue to follow as needed ADRIÁN Gabriel
--- NOTE | 2024-11-14 17:12 | PM.DS.1 ---
History of Present Illness History of Present Illness Chief complaint: flu like symptoms, N/V/D Narrative: Chief complaint: Flu like symptoms, N/V/D History of present illness: This is an 86 yo male to female (who goes by the name of Ashli) with transgender, Afib and previous UTI who presented with fatigue and weakness over the past 4 days. He denies any CP or palpatations. His HR was 150 and he was given one dose of 5 mg of Diliazem which reduced the HR to 80-90. He says that he has been experiencing the symptoms of a distended bladder and inability to urinate for several days or weeks. His UA shows 30-100 wbc's so he will be treated for a UTI. The urine culture and blood cultures are pending. He is very relieved to have received a Grant catheter. He is alert and oriented x3. No apparent distress. Hearing loss present. Pupils are equally round and reactive to light and accommodation. Extraocular muscles are intact. Sclerae are pink and nonicteric. Throat looks normal. No lymph nodes are felt head, neck, supraclavicular area. There is no thyromegaly. JVD is less than 6 cm. No carotid bruits are heard. Heart is irregularly irregular without murmur. Lungs are clear to auscultation bilaterally. Abdomen is soft, bowel sounds positive, nontender, no organomegaly. Extremities have no ankle edema. A Grant catheter is present. Skin has no rash or jaundice. Cranial nerves 2-12 test intact. Motor function is 3/5 bilaterally and symmetrically. There is no tremor. Reflexes are symmetric. Hospital course: She was found to have an E coli UTI which was resistant to levofloxacin, ciprofloxacin, and intermediately sensitive to cefazolin. Grant catheter was also required due to urinary retention. Today she reports that she is feeling better overall but continues to be very fatigued when she gets up to go to the bathroom. She states she was confused on admission and does not recall much about the day she came in. She notes she lives in [place] on [address] in a trailer on her nieces property. She moved from [place] 5 years ago. She is 1 remaining sibling a sister who is 97 years old and remains in [place]. Review of systems: No rigors No chest pain shortness for Is having some discomfort in her feet 1. E coli UTI She has received a total of 5 doses of IV ceftriaxone. Will transition to doxycycline for 5 additional days. 2. Bladder outlet obstruction d/t BPH, s/p grant catheter placement Continue tamsulosin 0.4 mg daily. Continue grant catheter. Would recommend voiding trial in 1 week and f/u with urology. 3. Permanent a fib Rate controlled. Will d/c telemetry. Continue metoprolol and apixaban 4. Mild valvular disease, including mild mitral regurgitation, mild aortic regurgitation, moderate tricuspid regurgitation, and mild pulmonic regurgitation. Identified on echocardiogram done November 09 5. Acute CHF with preserved ejection fraction BNP was 5480 on admission. LV ejection fraction was 50-55%. Symptoms are well controlled on oral Lasix. Sodium has improved from 126-132 this morning. Renal function has improved as well with a BUN stable at 30 and creatinine improved from 1.36-1.10. This will be continued. Code status Full Prophylaxis On Eliqu Disposition Pending acceptance to [facility]. FURNITURE STAINER updated pt in room. remains agreeable to dc to [facility]. mostly concerned about seeing her cat again. PASRR previously completed. P: anticipate return to [facility] once able to coordinate (likely Wednesday) transport with facility vehicle. Will continue to follow closely for DCP Coordinatio Time-Based Coding 35 minutes were involved with the management of this patient including [id number] evaluation discussion with care providerrenewals manager of prescriptions objective laboratory data Discharge Providers Provider Date of admission: 11/07/24 23:47 Discharge Date: 11/14/24 Consults: 11/08/24 12:38 Consult to Physical Therapy Evaluate & Treat Comment: Physician Instructions: Evaluate and Treat 11/08/24 12:39 Consult to Occupational Therapy Evaluate & Treat Comment: Physician Instructions: Evaluate and treat 11/09/24 11:39 Consult to Pharmacy Routine Comment: high fall risk 11/09/24 20:08 Consult to Pharmacy Routine Comment: history of falls, and patient doesnt know her Rx's 11/10/24 12:55 Consult to Pharmacy Routine Comment: high fall risk 11/14/24 10:30 Consult to Pharmacy Routine Comment: high fall risk Discharge provider: Bayron Baez MD Exam Vital Signs (past 8 hours): - 11/14/24 10:00 Pulse Oximetry 96 Oxygen Delivery Method Room Air Oxygen Delivery Method Room Air Oxygen Flow Rate 0 Objective Labs 11/13/24 04:48 11/13/24 04:48 [facility] Medical History Urinary tract infection Transgender female Social History household members: none Smoking Status: Never smoker Discharge Plan Discharge Plan Patient Disposition: SNF Under care of provider: Facility MD Discharge orders & Medications Prescriptions: New furosemide 20 mg Tablet 20 mg PO 0800,1700 Qty: 60 0RF metoprolol succinate 25 mg Tablet Extended Release 24 Hr 25 mg PO DAILY Qty: 30 0RF Rx Instructions: hold for SBP<110 or HR<55 tamsulosin 0.4 mg Capsule 0.4 mg PO DAILY Qty: 30 0RF doxycycline hyclate 100 mg Tablet 100 mg PO BID Qty: 14 0RF Continued Eliquis 2.5 mg tablet 2.5 mg PO BID Discharge Health Status Precautions: [place] Diet/Activity/Treatments Diet: Diet as Tolerated and Regular Liquid consistency: Normal/Thin Food texture: Regular Activity: As tolerated Catheter: 2-way Grant Catheter comment: Voiding trial to be initiated on 11/20/24. If no UOP in 8 hrs, replace grant Oxygen: N/A Special Rehabilitation Services Reason for rehabilitation: Recovery r/t decondition Rehab type: Physical therapy and Occupational therapy Visit Report/Discharge Packet Stand Alone Forms: Patient Portal/API
== END 2024-11-14 09:50 | DRG 308 ==
LOC: ED 21:54 → AC 23:48
PROVIDERS: Family Medicine; Admitting Provider Internal Medicine; Emergency Provider Emergency Medicine; Referring Provider Emergency Medicine; Visit Provider Internal Medicine
DX: I48.91 Unspecified atrial fibrillation (principal); I50.31 Acute diastolic (congestive) heart failure; E87.1 Hypo-osmolality and hyponatremia; N39.0 Urinary tract infection, site not specified; N13.8 Other obstructive and reflux uropathy; Z16.24 Resistance to multiple antibiotics; R53.1 Weakness; R79.89 Other specified abnormal findings of blood chemistry; F64.0 Transsexualism; I07.1 Rheumatic tricuspid insufficiency; B96.20 Unspecified Escherichia coli [E. coli] as the cause of diseases classified elsewhere; N40.1 Benign prostatic hyperplasia with lower urinary tract symptoms; I48.21 Permanent atrial fibrillation; I34.0 Nonrheumatic mitral (valve) insufficiency; I35.1 Nonrheumatic aortic (valve) insufficiency; I37.1 Nonrheumatic pulmonary valve insufficiency; I11.0 Hypertensive heart disease with heart failure
CPT/HCPCS: 36415; 71045; 80048; 80053; 81003; 81015; 83605; 83690; 83735; 83880; 84145; 84153; 84484; 85025; 86140; 87040; 87077; 87086; 87186; 87637; 93005; 93306; 96361; 96365; 96375; 97116; 97129; 97162; 97166; 97530; 97535; 99284; 99285; J0131; J0696; J1885; J1938; J2405